=== PATIENT | male | born 1945 | race Caucasian/White ===

== ENCOUNTER 2019-01-31 01:53 | Inpatient (IN) | payer MEDICARE, BC ==
[~2019-01-31] VITALS: Ht 182.9 cm; Wt 108.5 kg
[~2019-01-31 01:53] MED LIST: ASPI325 PO; Amiodarone HCl400 MG PO; CLOP75 PO; EZET10-80 PO; K-Dur 20 meq T20 MEQ PO; Lasix20 MG PO; Lopressor 50 mg50 MG PO; METO100ER PO; METO50 PO; METO50ER PO; NITR.4SL SL; RAMI5 PO; RANO500T PO
[2019-01-31 02:17] LABS: Source, Urine Clean Catch
[2019-01-31] MEDS ORDERED: POTA10T PO (02:20)
[2019-01-31] MEDS ORDERED: FURO20 PO (02:20)
[2019-01-31] MEDS ORDERED: METOPROLOL PO ×2 (02:20)
[2019-01-31] MEDS ORDERED: RAMI5 PO (02:20)
[2019-01-31] MEDS ORDERED: ELIQUIS2.5 MG PO (02:21)
[2019-01-31] MEDS ORDERED: ASPI81CH PO (02:21)
[2019-01-31 02:26] LABS: Bilirubin, Urine Neg (Neg); Blood, Urine Neg (Neg); Glucose Qualitative, Urine Neg (Neg); Ketones, Urine Neg (Neg); Leukocyte Esterase, Urine Neg (Neg); Nitrite, Urine Neg (Neg); Protein, Urine 2+ (Neg); Specific Gravity, Urine 1.025 (1.003-1.022); Urobilinogen, Urine NORM (Normal)
[2019-01-31 02:29] LABS: BASOPHILS ABSOLUTE AUTO 0.05 K/mm3 (0.00-0.23); BASOPHILS PERCENT AUTO 0 % (0-2); EOSINOPHILS ABSOLUTE AUTO 0.14 K/mm3 (0.00-0.68); EOSINOPHILS PERCENT AUTO 1 % (0-6); Hematocrit 47.8 % (37.0-53.0); Hemoglobin 15.5 g/dL (13.5-17.5); IMMATURE GRAN ABSOLUTE AUTO 0.05 K/mm3 (0.00-0.10); IMMATURE GRAN PERCENT AUTO 0 % (0-1); LYMPHOCYTES ABSOLUTE AUTO 2.89 K/mm3 (0.84-5.20); LYMPHOCYTES PERCENT AUTO 19 % (21-46); MONOCYTES ABSOLUTE AUTO 1.04 K/mm3 (0.16-1.47); MONOCYTES PERCENT AUTO 7 % (4-13); Mean Corpuscular HGB Conc 32.4 g/dL (31.5-36.5); Mean Corpuscular Volume 93 fL (80-100); Mean Platelet Volume 10.8 fL (9.1-12.4); NEUTROPHILS ABSOLUTE AUTO 11.39 K/mm3 (1.96-9.15); NEUTROPHILS PERCENT AUTO 73 % (41-73); Platelet Count 276 K/mm3 (150-400); RDW Coefficient Variation 13.2 % (11.7-14.2); RDW Standard Deviation 45.4 fL (35.1-46.3); Red Blood Cell Count 5.17 M/mm3 (4.30-5.90); White Blood Cell Count 15.56 K/mm3 (4.00-11.30)
[2019-01-31 02:29] LABS: Appearance, Urine Clear (Clear); Color, Urine Yellow (P-Yellow)
[2019-01-31 02:32] LABS: Amorphous Light (0-Heavy); Bacteria Rare /hpf; Mucus Light (0-Heavy); Red Blood Cells, Urine Not Seen /hpf (0-2); Squamous Epithelial Cells Few /hpf (Few); White Blood Cells, Urine Rare /hpf (0-5)
[2019-01-31 02:50] LABS: Alanine Aminotransfer (ALT/SGP 28 U/L (12-78); Albumin/Globulin Ratio 0.9 (0.8-1.8); Alk Phos 80 U/L (50-136); Anion Gap 8 mmol/L (6-16); Aspartate Aminotrans (AST/SGOT 18 U/L (12-37); Bilirubin, Total 0.4 mg/dL (0.1-1.0); Blood Urea Nitrogen 27 mg/dL (8-24); Bun/Creatinine Ratio 22.5 (12.0-20.0); CO2, Blood 27 mmol/L (21-32); Calcium, Blood 9.1 mg/dL (8.5-10.1); Chloride, Blood 104 mmol/L (98-108); Globulin, Blood 4.3 g/dL (2.2-4.0); Glomerular Filtration Rate >60 (60-); Glucose, Blood 187 mg/dL (70-99); Potassium, Blood 3.6 mmol/L (3.5-5.5); Sodium, Blood 139 mmol/L (136-145); Total Protein, Blood 8.3 g/dL (6.4-8.2); Troponin I 0.281 ng/mL (0.000-0.040)
[2019-01-31] MEDS ORDERED: NITR.4SL SL (04:25)
--- NOTE | 2019-01-31 05:07 | NUR ---
ASSUMED CARE OF PATIENT AT APPROXIMATELY 0420 FROM ED [facility] PATIENT ARRIVED TO UNIT VIA STRETCHER; TRANSFER WITH VERBAL CUES FROM ED TO PCU STRETCHER. ADMISSION COMPLETE. PATIENT ALERT AND ORIENTED X4. PATIENT DENIES CP/PRESSURE, PAIN ELSEWHERE, DIZZINESS, NAUSEA OR LIGHTHEADEDNESS. AFLUTTER ON TELE WITH A RATE IN 80'S; OXYGEN SATURATION ABOVE 90% ON ROOM AIR. PATIENT REPORTS FEELING BETTER. DR. SALINAS BEDSIDE AT APPROXIMATELY 0450; CARDIO TO BE CONSULTED AND PROB STRESS TEST. HEPARIN GTT. PATIENT CURRENTLY RESTING IN BED; CALL LIGHT IN REACH; BED IN LOWEST POSISTION; WILL CONTINUE TO MONITOR AND ASSESS UNTIL END OF SHIFT.
--- NOTE | 2019-01-31 06:09 | NUR ---
PATIENT'S STOPPED IN. PATIENT REPORTED TO DR. SALINAS THAT HE WOULD LIKE TO BE DNR. NO OTHER ACUTE CHANGES TO REPORT. PATIENT CURRENTLY RESTING IN BED; CALL LIGHT IN REACH; BED IN LOWEST POSISTION; WILL CONTINUE TO MONITOR AND ASSESS UNTIL END OF SHIFT.
[2019-01-31 06:23] LABS: Troponin I 0.295 ng/mL (0.000-0.040)
--- NOTE | 2019-01-31 08:00 | NUR ---
pt laying in bed awake a/ox3, pleasant and cooperative with care, follows commands well, denies pain, states he had some tingling going down his ext, lugns are dim t/o, resp even and unlabord, no cough noted, hrr, tele in place running aflutter per monitor, see strip, no edema noted, ppp+1, cap refill <3sec, vs stable, afebrile, iv site is clear and patent, btx4, abd round soft nontender, voids without diff, skin c/w/d, maew, bebeto, call light in reach, will have an echo this am. in fusing hep gtt at this time.
--- NOTE | 2019-01-31 10:43 | NUR ---
ECHOCARDIOGRAM COMPLETED
--- NOTE | 2019-01-31 12:02 | NUR ---
PT LEFT FOR [facility].
--- NOTE | 2019-01-31 13:30 | NUR ---
pt returned to room after angio, was reported that his grafts were balooned, tr band to left wrist, site is clear, no sign of bleeding but a small bit of bruising noted. pt awake and doing ok. vs stable. he reports it was easier than his was anticipating. will continue to monitor. call light in reach.
[2019-01-31 15:22] LABS: Troponin I 0.179 ng/mL (0.000-0.040)
--- NOTE | 2019-01-31 22:06 | NUR ---
ASSUMED CARE OF PATIENT AT APPROXIMATELY 1905 FROM GURU Lozano RN. PATIENT ALERT AND ORIENTED X4. PATIENT DENIES CP/PRESSURE, PAIN ELSEWHERE, DIZZINESS, NAUSEA OR LIGHTHEADEDNESS. PATIENT HAD ANGIO TODAY THROUGH LEFT RADIAL; BALLOON ANGIO; AFLUTTER W/ BBB ON TELE WITH A RATE IN 60'S; OXYGEN SATURATION ABOVE 90% ON ROOM AIR. PATIENT REPORTS HE IS A LIGHT SLEEPER AND REQUESTED SLEEP AID; REPORTS HE TAKES TYLENOL PM WHEN NEEDED AT HOME; CALLED ELISHA PARKER; ORDERS RECIEVED FOR ONE TIME DOSE OF MELATONIN. TR BAND WAS DEFLATED BY SHIFT CHANGE; TEGADERM DRESSING PLACED SHORTLY AFTER 1999; BRUISING NOTED; SMALL AMOUNT OF DRIED BLOOD CLEANED OFF BEFORE DRESSING PLACED. PATIENT CURRENTLY RESTING IN BED; CALL LIGHT IN REACH; BED IN LOWEST POSISTION; WILL CONTINUE TO MONITOR AND ASSESS UNTIL END OF SHIFT.
[2019-02-01 04:15] LABS: Hematocrit 43.1 % (37.0-53.0); Mean Corpuscular HGB 30.3 pg (26.0-34.0); Mean Corpuscular HGB Conc 32.5 g/dL (31.5-36.5); Mean Corpuscular Volume 93 fL (80-100); Mean Platelet Volume 10.6 fL (9.1-12.4); Platelet Count 238 K/mm3 (150-400); RDW Coefficient Variation 13.6 % (11.7-14.2); RDW Standard Deviation 46.5 fL (35.1-46.3); Red Blood Cell Count 4.62 M/mm3 (4.30-5.90); White Blood Cell Count 10.74 K/mm3 (4.00-11.30)
[2019-02-01 04:34] LABS: Alanine Aminotransfer (ALT/SGP 23 U/L (12-78); Albumin, Blood 3.2 g/dL (3.4-5.0); Albumin/Globulin Ratio 0.9 (0.8-1.8); Alk Phos 71 U/L (50-136); Anion Gap 3 mmol/L (6-16); Aspartate Aminotrans (AST/SGOT 17 U/L (12-37); Bilirubin, Total 0.7 mg/dL (0.1-1.0); Blood Urea Nitrogen 23 mg/dL (8-24); Bun/Creatinine Ratio 21.9 (12.0-20.0); CO2, Blood 29 mmol/L (21-32); Chloride, Blood 107 mmol/L (98-108); Creatinine, Blood 1.05 mg/dL (0.60-1.20); Globulin, Blood 3.7 g/dL (2.2-4.0); Glomerular Filtration Rate >60 (60-); Glucose, Blood 114 mg/dL (70-99); Potassium, Blood 4.5 mmol/L (3.5-5.5); Sodium, Blood 139 mmol/L (136-145); Total Protein, Blood 6.9 g/dL (6.4-8.2)
--- NOTE | 2019-02-01 06:07 | NUR ---
PATIENT SLEPT ABOUT EIGHT HOURS LAST NIGHT. VSS. NO ACUTE CHANGES TO REPORT. LEFT RADIAL SITE UNCHANGED. WILL CONTINUE TO MONITOR AND ASSESS UNTIL END OF SHIFT.
--- NOTE | 2019-02-01 08:00 | NUR ---
pt resting in bed watching tv, states he had a pretty good night, no complaints states the tingling is gone that brought him in. feels ready to go home today, lungs are clear in [place], dim in bases, resp even and unlabored, no cough noted, hrr, tele in place running sr per monitor, see strip, no edema noted, ppp+2, cap refill <3sec, vs stable, afebrile, iv site is power glide to [facility] that is accessed, continues to infuse iv protonix, btx4, abd flat soft nontender voids without diff, skin c/w/d, maew, bebeto, call light in reach.
[2019-02-01] MEDS ORDERED: ATOR40TA PO (10:59)
[2019-02-01] MEDS ORDERED: CLOP75 PO (11:01)
[2019-02-01] MEDS ORDERED: TORSE20 PO (11:03)
[2019-02-01] MEDS ORDERED: METO50ER PO (11:04)
--- NOTE | 2019-02-01 12:18 | NUR ---
pt has been discharged to home, he states he feels good and is ready, will be here around 1 to pick him up. call light in reach.
== END 2019-02-01 14:07 | disposition home or self-care (01) | DRG 251 ==
LOC: ER 01:53 → PCU 01:54 → ER 03:50 → PCU 03:50
PROVIDERS: Emergency Medicine; ADMIT Internal Medicine
PROC: 02713ZZ Dilation of Coronary Artery, Two Arteries, Percutaneous Approach (ICD-10-PCS; principal; 2019-01-31)
PROC: B2111ZZ Fluoroscopy of Multiple Coronary Arteries using Low Osmolar Contrast (ICD-10-PCS; 2019-01-31)
PROC: B2121ZZ Fluoroscopy of Single Coronary Artery Bypass Graft using Low Osmolar Contrast (ICD-10-PCS; 2019-01-31)
DX: I21.4 Non-ST elevation (NSTEMI) myocardial infarction (principal); I48.92 Unspecified atrial flutter; I25.10 Atherosclerotic heart disease of native coronary artery without angina pectoris; Z95.1 Presence of aortocoronary bypass graft; I45.10 Unspecified right bundle-branch block; I10 Essential (primary) hypertension; E66.9 Obesity, unspecified; Z68.31 Body mass index [BMI] 31.0-31.9, adult; I48.0 Paroxysmal atrial fibrillation
CPT/HCPCS: 36415; 71045; 76937; 80053; 81001; 82550; 83880; 84484; 85025; 85027; 85347; 85730; 92920; 92921; 93005; 93010; 93306; 93455; 96374; 99152; 99153; 99284-25; C1725; C1769; C1887; C1894; G0378; J1644; J1940; J2250; J3010; J7030; J7040; Q9967

== ENCOUNTER 2020-09-18 05:46 | Day surgery (SDC) | payer MEDICARE, BC ==
[~2020-09-18] VITALS: Ht 182.9 cm; Wt 118.0 kg
[~2020-09-18 05:46] MED LIST changes: +ASPI81CH PO; +ATOR40TA PO; +ELIQUIS2.5 MG PO; +FURO20 PO; +METO25ER PO; +METOPROLOL PO; +POTA10T PO; +TORSE20 PO
[2020-09-18] MEDS ORDERED: FURO20 PO (06:34)
[2020-09-18] MEDS ORDERED: CEPH500 PO (09:44)
--- NOTE | 2020-09-18 16:04 | NUR ---
DISCHARGE PT REMAINED A&OX3 DURING RECOVERY. PAIN HAD DECREASED TO A 2 DURING RECOVERY AND STAYED THERE THROUGHOUT. IV DC'S WITH CANUYLA IN TACT. LEFT UPPER CHEST SITE REMAINS CDI-NO HEMATOMA NOTED.-PRESSURE DRESSING REMOVED-TELFA PAD AND TEGADERM REMAIN IN PLACE. PT UP TO RESTROOM WITH STEADY GAIT AND ABLE TO DRESS SELF. DISCHARGE PAPERWORK GONE OVER WITH PT. PT VERBALLY STATED THE UNDERSTANDING OF THE DISCHARGE EDUCATION AND DENIED ANY QUESTIONS AT THIS TIME. PT WHEELD OUT BY THIS NURSE.
== END 2020-09-18 16:39 | disposition home or self-care (01) ==
LOC: MHTC 05:46
DX: I11.0 Hypertensive heart disease with heart failure (principal); I50.20 Unspecified systolic (congestive) heart failure; I42.0 Dilated cardiomyopathy; I25.5 Ischemic cardiomyopathy; I45.2 Bifascicular block; I08.1 Rheumatic disorders of both mitral and tricuspid valves; I27.20 Pulmonary hypertension, unspecified; I48.91 Unspecified atrial fibrillation; I48.92 Unspecified atrial flutter; I25.10 Atherosclerotic heart disease of native coronary artery without angina pectoris; I25.2 Old myocardial infarction; Z98.61 Coronary angioplasty status; Z95.1 Presence of aortocoronary bypass graft; Z82.49 Family history of ischemic heart disease and other diseases of the circulatory system; E66.01 Morbid (severe) obesity due to excess calories; Z68.35 Body mass index [BMI] 35.0-35.9, adult; Z79.01 Long term (current) use of anticoagulants
CPT/HCPCS: 33249; 71046; 76937; 99152; 99153; A9270; C1721; C1894; C1895; C1898; J0690; J1644; J2250; J3010; J7040

== ENCOUNTER → 2022-07-27 | Outpatient (CLI) | payer MEDICARE, BC ==
[~2022-07-27] MED LIST changes: +ALBU90OI INH; +CEPH500 PO; +Tessalon Perle100 MG PO
== END | disposition home or self-care (01) ==
LOC: PLD 08:16 → LAB SHORT 08:16
DX: C44.01 Basal cell carcinoma of skin of lip (principal)
CPT/HCPCS: 88305

== ENCOUNTER 2022-09-18 19:19 | Emergency (ER) | payer MEDICARE, BC ==
[~2022-09-18] VITALS: Ht 182.9 cm; Wt 101.2 kg
[2022-09-18 19:50] LABS: BASOPHILS ABSOLUTE AUTO 0.04 K/mm3 (0.00-0.23); BASOPHILS PERCENT AUTO 1 % (0-2); EOSINOPHILS ABSOLUTE AUTO 0.44 K/mm3 (0.00-0.68); EOSINOPHILS PERCENT AUTO 6 % (0-6); Hematocrit 34.7 % (37.0-53.0); Hemoglobin 11.4 g/dL (13.5-17.5); IMMATURE GRAN ABSOLUTE AUTO 0.01 K/mm3 (0.00-0.10); IMMATURE GRAN PERCENT AUTO 0 % (0-1); LYMPHOCYTES ABSOLUTE AUTO 1.69 K/mm3 (0.84-5.20); LYMPHOCYTES PERCENT AUTO 24 % (21-46); MONOCYTES ABSOLUTE AUTO 1.22 K/mm3 (0.16-1.47); MONOCYTES PERCENT AUTO 17 % (4-13); Mean Corpuscular HGB 30.5 pg (26.0-34.0); Mean Corpuscular HGB Conc 32.9 g/dL (31.5-36.5); Mean Corpuscular Volume 93 fL (80-100); Mean Platelet Volume 11.3 fL (9.1-12.4); NEUTROPHILS ABSOLUTE AUTO 3.67 K/mm3 (1.96-9.15); NEUTROPHILS PERCENT AUTO 52 % (41-73); Platelet Count 196 K/mm3 (150-400); RDW Coefficient Variation 15.2 % (11.7-14.2); RDW Standard Deviation 51.9 fL (35.1-46.3); Red Blood Cell Count 3.74 M/mm3 (4.30-5.90); White Blood Cell Count 7.07 K/mm3 (4.00-11.30)
[2022-09-18 20:08] LABS: Albumin/Globulin Ratio 0.8 (0.8-1.8); Bilirubin, Total 1.6 mg/dL (0.1-1.0); Bun/Creatinine Ratio 17.2 (12.0-20.0); Calcium, Blood 9.3 mg/dL (8.5-10.1); Creatinine, Blood 1.45 mg/dL (0.60-1.20); Globulin, Blood 3.7 g/dL (2.2-4.0); Potassium, Blood 4.1 mmol/L (3.5-5.5); Total Protein, Blood 6.7 g/dL (6.4-8.2)
[2022-09-18 21:18] LABS: Percent Saturation 17.6 % (20.0-50.0)
[2022-09-18 21:30] VITALS: BP 115/77
== END 2022-09-18 22:10 | disposition home or self-care (01) ==
LOC: ER 19:19
PROVIDERS: Student in an Organized Health Care Education/Training Program
DX: R53.1 Weakness (principal); D50.9 Iron deficiency anemia, unspecified; R63.4 Abnormal weight loss; Z68.30 Body mass index [BMI] 30.0-30.9, adult; I11.0 Hypertensive heart disease with heart failure; I50.9 Heart failure, unspecified; I25.10 Atherosclerotic heart disease of native coronary artery without angina pectoris; Z79.01 Long term (current) use of anticoagulants; Z79.899 Other long term (current) drug therapy
CPT/HCPCS: 70450; 80053; 82728; 83540; 83550; 85025; 93005; 93010; 99285-25

== ENCOUNTER 2022-10-03 09:34 | Emergency (ER) | payer MEDICARE, BC ==
[~2022-10-03] VITALS: Ht 182.9 cm; Wt 99.8 kg
[2022-10-03] MEDS ORDERED: LOSA50 PO (10:03)
[2022-10-03] MEDS ORDERED: PLAVIX75 MG PO (10:04)
[2022-10-03 10:06] LABS: BASOPHILS ABSOLUTE AUTO 0.05 K/mm3 (0.00-0.23); BASOPHILS PERCENT AUTO 1 % (0-2); EOSINOPHILS PERCENT AUTO 2 % (0-6); Hematocrit 21.2 % (37.0-53.0); Hemoglobin 6.8 g/dL (13.5-17.5); IMMATURE GRAN ABSOLUTE AUTO 0.02 K/mm3 (0.00-0.10); IMMATURE GRAN PERCENT AUTO 0 % (0-1); LYMPHOCYTES ABSOLUTE AUTO 1.27 K/mm3 (0.84-5.20); LYMPHOCYTES PERCENT AUTO 19 % (21-46); MONOCYTES ABSOLUTE AUTO 0.79 K/mm3 (0.16-1.47); MONOCYTES PERCENT AUTO 12 % (4-13); Mean Corpuscular HGB 30.8 pg (26.0-34.0); Mean Corpuscular HGB Conc 32.1 g/dL (31.5-36.5); Mean Corpuscular Volume 96 fL (80-100); NEUTROPHILS ABSOLUTE AUTO 4.53 K/mm3 (1.96-9.15); NEUTROPHILS PERCENT AUTO 67 % (41-73); Platelet Count 264 K/mm3 (150-400); RDW Coefficient Variation 14.9 % (11.7-14.2); RDW Standard Deviation 52.6 fL (35.1-46.3); Red Blood Cell Count 2.21 M/mm3 (4.30-5.90); White Blood Cell Count 6.76 K/mm3 (4.00-11.30)
[2022-10-03 10:23] LABS: Albumin, Blood 2.9 g/dL (3.4-5.0); Albumin/Globulin Ratio 0.9 (0.8-1.8); Bilirubin, Total 1.3 mg/dL (0.1-1.0); Bun/Creatinine Ratio 31.9 (12.0-20.0); Calcium, Blood 8.7 mg/dL (8.5-10.1); Creatinine, Blood 1.63 mg/dL (0.60-1.20); Globulin, Blood 3.4 g/dL (2.2-4.0); Potassium, Blood 4.8 mmol/L (3.5-5.5); Total Protein, Blood 6.3 g/dL (6.4-8.2)
[2022-10-03 10:51] LABS: Magnesium, Blood 2.2 mg/dL (1.6-2.4)
[2022-10-03 10:53] LABS: Thyroid Stimulating Hormone 10.1 uIU/mL (0.360-4.800)
[2022-10-03 11:52] LABS: Free Thyroxine 0.87 ng/dL (0.70-1.60); Triiodothyronine, Free 2.15 pg/mL (2.18-3.98)
[2022-10-03 15:33] LABS: Hematocrit 25.4 % (37.0-53.0); Hemoglobin 8.4 g/dL (13.5-17.5); Mean Corpuscular HGB 30.9 pg (26.0-34.0); Mean Corpuscular HGB Conc 33.1 g/dL (31.5-36.5); Mean Corpuscular Volume 93 fL (80-100); Mean Platelet Volume 11.2 fL (9.1-12.4); Platelet Count 251 K/mm3 (150-400); RDW Coefficient Variation 15.1 % (11.7-14.2); RDW Standard Deviation 51.3 fL (35.1-46.3); Red Blood Cell Count 2.72 M/mm3 (4.30-5.90)
[2022-10-03 19:11] VITALS: BP 109/73
== END 2022-10-03 19:50 | disposition short-term general hospital (02) ==
LOC: ER 09:34
PROVIDERS: Emergency Medicine; Student in an Organized Health Care Education/Training Program
DX: R57.1 Hypovolemic shock (principal); D62 Acute posthemorrhagic anemia; K92.1 Melena; T45.515A Adverse effect of anticoagulants, initial encounter; R94.31 Abnormal electrocardiogram [ECG] [EKG]; R77.8 Other specified abnormalities of plasma proteins; Z79.899 Other long term (current) drug therapy; I25.10 Atherosclerotic heart disease of native coronary artery without angina pectoris; I11.0 Hypertensive heart disease with heart failure; I50.9 Heart failure, unspecified; I25.2 Old myocardial infarction
CPT/HCPCS: 36430; 80053; 82947; 83735; 84439; 84443; 84481; 84484; 85025; 85027; 86850; 86900; 86901; 86923; 93005; 93010; 96374; 99285-25; J7030; J7168; P9016

== ENCOUNTER 2022-12-05 13:33 | Inpatient (IN) | payer MEDICARE, BC ==
[~2022-12-05] VITALS: Ht 182.9 cm; Wt 109.7 kg
[~2022-12-05 13:33] MED LIST changes: +LOSA50 PO; +PLAVIX75 MG PO
[2022-12-05 14:10] LABS: BASOPHILS ABSOLUTE AUTO 0.04 K/mm3 (0.00-0.23); BASOPHILS PERCENT AUTO 1 % (0-2); EOSINOPHILS PERCENT AUTO 3 % (0-6); Hematocrit 31.5 % (37.0-53.0); Hemoglobin 9.8 g/dL (13.5-17.5); IMMATURE GRAN ABSOLUTE AUTO 0.02 K/mm3 (0.00-0.10); IMMATURE GRAN PERCENT AUTO 0 % (0-1); LYMPHOCYTES ABSOLUTE AUTO 1.14 K/mm3 (0.84-5.20); LYMPHOCYTES PERCENT AUTO 16 % (21-46); MONOCYTES ABSOLUTE AUTO 1.31 K/mm3 (0.16-1.47); MONOCYTES PERCENT AUTO 19 % (4-13); Mean Corpuscular HGB 25.3 pg (26.0-34.0); Mean Corpuscular HGB Conc 31.1 g/dL (31.5-36.5); Mean Corpuscular Volume 81 fL (80-100); NEUTROPHILS ABSOLUTE AUTO 4.31 K/mm3 (1.96-9.15); NEUTROPHILS PERCENT AUTO 61 % (41-73); Platelet Count 293 K/mm3 (150-400); RDW Coefficient Variation 17.1 % (11.7-14.2); RDW Standard Deviation 50.2 fL (35.1-46.3); Red Blood Cell Count 3.88 M/mm3 (4.30-5.90); White Blood Cell Count 7.02 K/mm3 (4.00-11.30)
[2022-12-05 14:41] LABS: Albumin, Blood 2.8 g/dL (3.4-5.0); Albumin/Globulin Ratio 0.6 (0.8-1.8); Bilirubin, Total 1.6 mg/dL (0.1-1.0); Bun/Creatinine Ratio 18.6 (12.0-20.0); Calcium, Blood 9.2 mg/dL (8.5-10.1); Creatinine, Blood 2.79 mg/dL (0.60-1.20); Globulin, Blood 4.8 g/dL (2.2-4.0); Potassium, Blood 4.3 mmol/L (3.5-5.5); Total Protein, Blood 7.6 g/dL (6.4-8.2)
[2022-12-05] MEDS ORDERED: ASPI81CH PO (16:50)
[2022-12-05] MEDS ORDERED: METO25ER PO (16:51)
[2022-12-05] MEDS ORDERED: PANT40 PO (16:52)
[2022-12-05] MEDS ORDERED: KLOR-CON 1010 ME1 PO (16:53)
[2022-12-05] MEDS ORDERED: TORS10 PO (16:54)
[2022-12-05 19:04] VITALS: BP 82/69
--- NOTE | 2022-12-06 04:01 | NUR ---
SHIFT SUMMARY/ADMIT NOTE PATIENT ARRIVED FROM ED RIGHT AT SHIFT CHANGE. A/Ox4, PLEASANT, COOPERATIVE. C/O FATIGUE, FEELING WEAK AT TIMES, SOB WITH EXERTION. ABLE TO AMBULATE SHORT DISTANCES, SBA. INDEPENDANT WITH BED MOBILITY. PITTING EDEMA TO BLE AND SCROTAL EDEMA. C/O PAIN TO RIGHT SHOULDER, RECEIVED PRN TYLENOL AND TOLERATED WELL WITHOUT FURTHER C/O PAIN. COMPLIANT WITH 1L FLUID RESTRICTION. 24HR URINE COLLECTION IN PROGRESS. VOIDING IN URINAL, DARK MARIANA, CONSENTRATED URINE. NOTED 1 SMALL FLUID FILLED BLISTER TO LLE, PATIENT STATES THERE WAS MANY MORE THAT HAVE BEEN DRAINED. NO OTHER SIGNIFICANT SKIN ISSUES. EXTENSIVE CARDIAC Hx, SEE H&P. NO ACUTE CHANGES OVERNIGHT. PATIENT EDUCATED ON FIRE SAFETY AND RISK OF INJURY R/T OXYGEN USE, VERBALIZED UNDERSTANDING, DENIES SMOKING NOR HAVING ACCESS TO ANY SOURCES OF IGNITION. BED IN LOW POSITION, CALL LIGHT WITHIN REACH.
[2022-12-06 04:10] VITALS: BP 104/75
[2022-12-06 04:55] LABS: Hematocrit 31.2 % (37.0-53.0); Hemoglobin 9.6 g/dL (13.5-17.5)
[2022-12-06 05:14] LABS: Albumin, Blood 2.9 g/dL (3.4-5.0); Anion Gap 13 mmol/L (6-16); Blood Urea Nitrogen 56 mg/dL (8-24); Bun/Creatinine Ratio 19.1 (12.0-20.0); CO2, Blood 21 mmol/L (21-32); CPK Creatine Kinase 199 U/L (39-308); Calcium, Blood 8.8 mg/dL (8.5-10.1); Chloride, Blood 106 mmol/L (98-108); Creatinine, Blood 2.93 mg/dL (0.60-1.20); Glomerular Filtration Rate 21 (60-); Glucose, Blood 113 mg/dL (70-99); Magnesium, Blood 2.2 mg/dL (1.6-2.4); Phosphorus, Blood 4.3 mg/dL (2.5-4.9); Potassium, Blood 4.2 mmol/L (3.5-5.5); Sodium, Blood 140 mmol/L (136-145); Uric Acid, Blood 10.7 mg/dL (3.5-7.2)
[2022-12-06 07:26] VITALS: BP 104/81
[2022-12-06 13:20] VITALS: BP 96/80
[2022-12-06 17:01] VITALS: BP 90/67
--- NOTE | 2022-12-06 19:14 | NUR ---
SHIFT SUMMARY: PT A&O X4. PT PLEASANT AND COOPERATIVE WITH ALL CARE. IGNITION SOURCES DISCUSSED WITH PT BY THIS RN AND HAT MODEL. PT VERBALIZED UNDERSTANDING. PT RECEVIED DIURETICS PER EMAR. PT HAS 3+ BLE AND SCROTAL EDEMA. PT ON 1000ML FLUID RESTRICTION TOLERATING WELL. PT WORKED WITH PT/OT TODAY AND ABLE TO MOVE INDEPENDENTLY WITH WALKER. PT OCCASIONALLY WILL GET TIRED WHEN AMBULATING BUT IS AWARE TO ASK FOR ASSISTANCE WHEN FEELING WEAK. IV IN LAC LEAKING AND POSITIONAL. NIGHT RN AWARE. PT RECEVIED IV ABX FOR PNEUMONIA WELL ALBUMIN ALSO TOLERATING WELL. PO ABX GIVEN PER EMAR. PT HAD SOFT BP'S THIS SHIFT. SCHEDULED MIDODRINE GIVEN. CALL LIGHT IN REACH. BED IN LOWEST POSITION. REPORT GIVEN TO ONCOMING RN.
[2022-12-06 19:23] VITALS: BP 100/76
--- NOTE | 2022-12-07 03:49 | NUR ---
SHIFT SUMMARY. SHIFT HAS BEEN UNREMARKABLE. PT IS AOX4, PLEASANT, COOPERATIVE WITH CARE. ADHERING TO 1000ML FLUID RESTRICTION. NO COMPLAINTS OF PAIN. HAS SLEPT THROUGH MOST OF NIGHT AFTER 2100 ASSESSMENT. HELD 2100 HEPARIN DUE TO RISK ASSOCIATED GIVEN RECENT PROLONGED HOSPITALIZATION FOR GI BLEED. NO MANIFESTATIONS OF GI BLEED THUS FAR. WILL CONTINUE TO MONITOR. CALLS APPROPRIATELY. BED LOCKED IN LOWEST POSITION. CALL LIGHT LEFT WITHIN REACH.
[2022-12-07 04:20] VITALS: BP 98/84
[2022-12-07 04:56] LABS: Hematocrit 30.1 % (37.0-53.0); Hemoglobin 9.4 g/dL (13.5-17.5)
[2022-12-07 05:46] LABS: Anion Gap 13 mmol/L (6-16); Blood Urea Nitrogen 58 mg/dL (8-24); Bun/Creatinine Ratio 19.3 (12.0-20.0); CO2, Blood 22 mmol/L (21-32); Calcium, Blood 8.9 mg/dL (8.5-10.1); Chloride, Blood 103 mmol/L (98-108); Glomerular Filtration Rate 21 (60-); Glucose, Blood 105 mg/dL (70-99); Phosphorus, Blood 4.3 mg/dL (2.5-4.9); Potassium, Blood 3.7 mmol/L (3.5-5.5); Sodium, Blood 138 mmol/L (136-145)
[2022-12-07 07:23] VITALS: BP 111/77
[2022-12-07 08:50] LABS: Protein, Urine Quantitative 10.4 mg/dL (0.0-11.9)
[2022-12-07 14:31] VITALS: BP 95/70
[2022-12-07 16:26] VITALS: BP 93/64
--- NOTE | 2022-12-07 17:28 | NUR ---
SHIFT SUMMARY- PT IS A/O, PLESANT AND COOPERATIVE. HE IS ADHEARING TO HIS FLUID RESTRICTION AND VOIDING FREQUENTLY. HIS BLOOD PRESSURES HAVE BEEN SOFT THIS SHIFT AND HE HAS RECIEVED HIS MIDODRINE. HE HAS BEEN AMBULATING TO THE RESTROOM. UP TO THE CHAIR FOR MEALS. WORKED WITH PT AND OT THIS SHIFT AND TOLORATED WELL. HIS BED IS IN THE LOW POSITON AND CALL LIGHT IS WITHIN REACH. HE WAS EDUCATED ABOUT FIRE SAFTY.
[2022-12-07 19:07] VITALS: BP 98/64
[2022-12-08 04:48] VITALS: BP 99/75
[2022-12-08 05:14] LABS: Hematocrit 27.2 % (37.0-53.0); Hemoglobin 8.6 g/dL (13.5-17.5)
--- NOTE | 2022-12-08 05:21 | NUR ---
SHIFT SUMMARY. SHIFT HAS BEEN UNREMARKABLE. PT COMPLAINED OF CRAMPS EARLY THIS MORNING. CALLED HOSPITALIST AND ACQUIRED ORDER AND ADMINISTERED FLEXERIL WHICH ALLEVIATED SYMPTOMS. NO COMPLAINTS OF PAIN SINCE OTHER THAN GENERAL SORENESS. AOX4, PLEASANT, COOPERATIVE WITH CARE. CALLS APPROPRIATELY. BED LOCKED IN LOWEST POSITION. CALL LIGHT LEFT WITHIN REACH.
[2022-12-08 06:03] LABS: Albumin, Blood 2.9 g/dL (3.4-5.0); Anion Gap 10 mmol/L (6-16); Blood Urea Nitrogen 62 mg/dL (8-24); Bun/Creatinine Ratio 17.8 (12.0-20.0); CO2, Blood 25 mmol/L (21-32); Calcium, Blood 8.7 mg/dL (8.5-10.1); Chloride, Blood 102 mmol/L (98-108); Creatinine, Blood 3.49 mg/dL (0.60-1.20); Glomerular Filtration Rate 17 (60-); Glucose, Blood 114 mg/dL (70-99); Magnesium, Blood 2.1 mg/dL (1.6-2.4); Phosphorus, Blood 4.3 mg/dL (2.5-4.9); Potassium, Blood 3.2 mmol/L (3.5-5.5); Sodium, Blood 137 mmol/L (136-145)
[2022-12-08 07:54] VITALS: BP 93/58
[2022-12-08 07:55] VITALS: BP 102/74
[2022-12-08 10:10] LABS: IMMUNOGLOBULIN A, QN, SERUM 1003 mg/dL (61-437); IMMUNOGLOBULIN G, QN, SERUM 1939 mg/dL (603-1613); IMMUNOGLOBULIN M, QN, SERUM 92 mg/dL (15-143)
[2022-12-08 14:56] VITALS: BP 94/70
--- NOTE | 2022-12-08 16:40 | NUR ---
SHIFT SUMMARY PT AOX4, SBA/INDEPENDENT IN THE ROOM USING A WALKER. PT HAS HAD AT THE BS THIS SHIFT. PT HAS NOT C/O P/N/V/D/CP/SOB THIS SHIFT. HE IS EAGER TO GET HOME. PT TAKES HIS MEDICATIONS WHOLE. HE IS ON A 1000ML FLUID RESTRICTION. CALL LIGHT WITHIN REACH, BED IN THE LOWEST POSITION. FIRE SAFETY PROTOCOLS AND PROCEDURES REVIEWED WITH PT. PT VERBALIZED UNDERSTANDING. NO IGNITION SOURCE IDENTIFIED. WILL REPORT TO ONCOMING NURSE.
[2022-12-09 04:16] VITALS: BP 92/70
[2022-12-09 04:55] LABS: BASOPHILS ABSOLUTE AUTO 0.03 K/mm3 (0.00-0.23); BASOPHILS PERCENT AUTO 0 % (0-2); EOSINOPHILS ABSOLUTE AUTO 0.64 K/mm3 (0.00-0.68); EOSINOPHILS PERCENT AUTO 9 % (0-6); Hematocrit 27.1 % (37.0-53.0); Hemoglobin 8.8 g/dL (13.5-17.5); IMMATURE GRAN ABSOLUTE AUTO 0.02 K/mm3 (0.00-0.10); IMMATURE GRAN PERCENT AUTO 0 % (0-1); LYMPHOCYTES PERCENT AUTO 16 % (21-46); MONOCYTES ABSOLUTE AUTO 1.34 K/mm3 (0.16-1.47); MONOCYTES PERCENT AUTO 18 % (4-13); Mean Corpuscular HGB 25.1 pg (26.0-34.0); Mean Corpuscular HGB Conc 32.5 g/dL (31.5-36.5); Mean Corpuscular Volume 77 fL (80-100); Mean Platelet Volume 10.7 fL (9.1-12.4); NEUTROPHILS ABSOLUTE AUTO 4.27 K/mm3 (1.96-9.15); NEUTROPHILS PERCENT AUTO 57 % (41-73); Platelet Count 218 K/mm3 (150-400); RDW Coefficient Variation 17.2 % (11.7-14.2); RDW Standard Deviation 47.5 fL (35.1-46.3); Red Blood Cell Count 3.51 M/mm3 (4.30-5.90)
[2022-12-09 05:11] LABS: Albumin, Blood 3.1 g/dL (3.4-5.0); Anion Gap 8 mmol/L (6-16); Blood Urea Nitrogen 63 mg/dL (8-24); Bun/Creatinine Ratio 16.8 (12.0-20.0); CO2, Blood 28 mmol/L (21-32); Calcium, Blood 8.9 mg/dL (8.5-10.1); Chloride, Blood 100 mmol/L (98-108); Creatinine, Blood 3.76 mg/dL (0.60-1.20); Glomerular Filtration Rate 16 (60-); Glucose, Blood 118 mg/dL (70-99); Magnesium, Blood 1.9 mg/dL (1.6-2.4); Phosphorus, Blood 4.1 mg/dL (2.5-4.9); Potassium, Blood 3.3 mmol/L (3.5-5.5); Sodium, Blood 136 mmol/L (136-145)
--- NOTE | 2022-12-09 05:25 | NUR ---
SUMMARY- NO ACUTE EVENTS OVERNIGHT. SBA. AAOX4. PT SLEPT WELL. RN EDUCATED ON FIRE SAFETY EVERY HOUR WITH ROUNDS.
[2022-12-09 07:21] VITALS: BP 98/70
[2022-12-09 13:28] VITALS: BP 92/74
[2022-12-09 14:12] LABS: ANTIMYELOPEROXIDASE (MPO) ABS <0.2 units (0.0-0.9); ANTIPROTEINASE 3 (PR-3) ABS <0.2 units (0.0-0.9); ATYPICAL PANCA <1:20 titer (Neg:<1:20); CYTOPLASMIC (C-ANCA) <1:20 titer (Neg:<1:20); PERINUCLEAR (P-ANCA) <1:20 titer (Neg:<1:20)
[2022-12-09 16:31] VITALS: BP 103/78
--- NOTE | 2022-12-09 17:42 | NUR ---
SHIFT SUMMARY: Pt remains A&O x3 this shift. VSS, denies pain. Resp even nonlabored on RA. OOB with fww. BLE edema remains pitting. Meds given as ordered. Voiding per urinal. Fluid restriction in place. Sitting up eating dinner. No c/o verbalized. Will continue to follow this shift.
[2022-12-09 19:26] VITALS: BP 93/71
[2022-12-10 03:26] VITALS: BP 104/81
[2022-12-10 05:01] LABS: Hematocrit 26.7 % (37.0-53.0); Hemoglobin 8.5 g/dL (13.5-17.5)
--- NOTE | 2022-12-10 05:22 | NUR ---
SHIFT SUMMARY PT A&O x4; VSS, AFEBRILE. PT CALM AND COOPERATIVE WITH CARE PROVIDED. NO C/O PAIN OR DISCOMFORT NOTED. PT COMPLIANT WITH 1000 mL RESTRICTION. ENCOURAGED PT TO CALL FOR ASSISTANCE WITH AMBULATING, WHILE PT WAS RECEIVING IV MEDICATION FOR SAFETY. NO SIGNS OF RESP DISTRESS, BREATHS EVEN AND UNLABORED. PT ABLE TO MAKE NEEDS KNOWN. CALL LIGHT WITHIN REACH, WCTM.
[2022-12-10 05:49] LABS: Albumin, Blood 3.3 g/dL (3.4-5.0); Anion Gap 10 mmol/L (6-16); Blood Urea Nitrogen 68 mg/dL (8-24); Bun/Creatinine Ratio 18.8 (12.0-20.0); CO2, Blood 29 mmol/L (21-32); Calcium, Blood 9.2 mg/dL (8.5-10.1); Chloride, Blood 98 mmol/L (98-108); Creatinine, Blood 3.62 mg/dL (0.60-1.20); Glomerular Filtration Rate 17 (60-); Glucose, Blood 116 mg/dL (70-99); Magnesium, Blood 1.8 mg/dL (1.6-2.4); Phosphorus, Blood 4.3 mg/dL (2.5-4.9); Potassium, Blood 3.4 mmol/L (3.5-5.5); Sodium, Blood 137 mmol/L (136-145)
[2022-12-10 07:21] VITALS: BP 96/76
[2022-12-10 15:04] VITALS: BP 93/76
--- NOTE | 2022-12-10 18:12 | NUR ---
SHIFT SUMMARY: Pt remains A&O this shift. VSS, denies pain. Ambulating independently in room and hallway. Resp even nonlabored on RA. Voiding per urinal. 1000ml fluid restriction in place. Support stockings on today. BLE edema improved, but remains pitting and weeping at times. Ignition safety with Q 1h rounds.
[2022-12-10 19:57] VITALS: BP 79/49
[2022-12-10 20:02] VITALS: BP 101/80
--- NOTE | 2022-12-11 01:08 | NUR ---
END OF SHIFT SUMMARY PT A&O x4 THIS EVENING. VSS, NO C/O PAIN. RESP EVEN AND UNLABORED, NO DIFFICULTIES WITH BREATHING. LUNG SOUNDS DIM AT THE BASES. PT CONTINENT, VOIDING USING THE URINAL. PT COMPLIANT WITH THE 1,000 mL FLUID RESTRICTION. FIRE SAFETY PROTOCOLS AND PROCEDURES REVIEWED WITH PT. NO IGNITION SOURCES IDENTIFIED, PT STATED "I'VE NEVER SMOKED A CIGARETTE." PT ABLE TO MAKE NEEDS KNOWN, CALL LIGHT WITHIN REACH, WCTM.
[2022-12-11 02:43] VITALS: BP 84/58
[2022-12-11 02:45] VITALS: BP 102/77
[2022-12-11 05:09] LABS: Hematocrit 25.7 % (37.0-53.0); Hemoglobin 8.4 g/dL (13.5-17.5)
[2022-12-11 05:34] LABS: Albumin, Blood 3.5 g/dL (3.4-5.0); Anion Gap 10 mmol/L (6-16); Blood Urea Nitrogen 76 mg/dL (8-24); Bun/Creatinine Ratio 20.4 (12.0-20.0); CO2, Blood 29 mmol/L (21-32); Calcium, Blood 9.3 mg/dL (8.5-10.1); Chloride, Blood 98 mmol/L (98-108); Creatinine, Blood 3.72 mg/dL (0.60-1.20); Glomerular Filtration Rate 16 (60-); Glucose, Blood 110 mg/dL (70-99); Magnesium, Blood 1.9 mg/dL (1.6-2.4); Phosphorus, Blood 3.7 mg/dL (2.5-4.9); Potassium, Blood 3.6 mmol/L (3.5-5.5); Sodium, Blood 137 mmol/L (136-145)
[2022-12-11 07:24] VITALS: BP 97/74
[2022-12-11] MEDS ORDERED: BUME2 PO (11:18)
[2022-12-11] MEDS ORDERED: AMOCLA875 PO (11:22)
[2022-12-11] MEDS ORDERED: DARBEPOETIN ALFA SC (11:24)
[2022-12-11] MEDS ORDERED: MIDO5 PO (11:24)
[2022-12-11] MEDS ORDERED: Midodrine HCl5 MG PO (11:26)
[2022-12-11] MEDS ORDERED: SPIR25 PO (11:27)
[2022-12-11] MEDS ORDERED: AZIT250 PO (11:34)
[2022-12-11] MEDS ORDERED: METO5 PO (11:36)
--- NOTE | 2022-12-11 13:21 | NUR ---
SHIFT/DISCHARGE SUMMARY: Pt remains A&O x3 this shift. Denies pain. VSS. Resp even nonlabored on RA. Ambulating independently. BM this am. Voiding without difficulty. BLE edema improved. All discharge instructions reviewed with pt and with return verbal understanding. Pt to lobby via transport chair and BOILER FITTER.
[2022-12-14 14:07] LABS: M-SPIKE, % Not Observed % (Not Observed)
== END 2022-12-11 13:26 | disposition home health service (06) | DRG 193 ==
LOC: ER 13:33 → MEDS 16:46 → ENPENDDIS 12-06 10:01 → MEDS 12-11 13:26
PROVIDERS: Internal Medicine Nephrology; Student in an Organized Health Care Education/Training Program; ADMIT Family Medicine
DX: J18.9 Pneumonia, unspecified organism (principal); I50.23 Acute on chronic systolic (congestive) heart failure; I13.0 Hypertensive heart and chronic kidney disease with heart failure and stage 1 through stage 4 chronic kidney disease, or unspecified chronic kidney disease; N17.9 Acute kidney failure, unspecified; I50.22 Chronic systolic (congestive) heart failure; D63.1 Anemia in chronic kidney disease; N18.2 Chronic kidney disease, stage 2 (mild); I25.10 Atherosclerotic heart disease of native coronary artery without angina pectoris; I95.9 Hypotension, unspecified; E66.3 Overweight; E88.09 Other disorders of plasma-protein metabolism, not elsewhere classified; E87.6 Hypokalemia; R31.29 Other microscopic hematuria; Z86.73 Personal history of transient ischemic attack (TIA), and cerebral infarction without residual deficits; Z87.19 Personal history of other diseases of the digestive system; Z95.1 Presence of aortocoronary bypass graft; Z95.5 Presence of coronary angioplasty implant and graft; Z90.89 Acquired absence of other organs; Z95.0 Presence of cardiac pacemaker; Z79.51 Long term (current) use of inhaled steroids; Z79.01 Long term (current) use of anticoagulants; Z79.02 Long term (current) use of antithrombotics/antiplatelets; Z79.899 Other long term (current) drug therapy
CPT/HCPCS: 36415; 71046; 76770; 80053; 80069; 82550; 83516; 83520; 83735; 83880; 84145; 84156; 84166; 84300; 84484; 84550; 85014; 85018; 85025; 86037; 86038; 86334; 86335; 93005; 93010; 96374; 96375; 97110; 97116; 97162; 97166; 97530; 97535; 99285-25; A9270; J0456; J0696; J0881; J1940; J7050; P9047

== ENCOUNTER → 2022-12-20 | Outpatient (CLI) | payer MEDICARE, BC ==
[~2022-12-20] MED LIST changes: +AMOCLA875 PO; +AZIT250 PO; +BUME2 PO; +DARBEPOETIN ALFA SC; +KLOR-CON 1010 ME1 PO; +METO5 PO; +MIDO5 PO; +Midodrine HCl5 MG PO; +PANT40 PO; +SPIR25 PO; +TORS10 PO
[2022-12-20 17:10] LABS: Creatinine Urine 56.9 mg/dL (27.00-270.00); Protein, Urine Quantitative 17.5 mg/dL (0.0-11.9)
[2022-12-20 17:13] LABS: Microalbumin, Urine Quant. 38.6 mg/L (0.000-20.000)
== END | disposition home or self-care (01) ==
LOC: LAB SHORT 13:00 → LAB 13:00
PROVIDERS: Internal Medicine Nephrology
DX: N18.30 Chronic kidney disease, stage 3 unspecified (principal); D63.1 Anemia in chronic kidney disease; N25.81 Secondary hyperparathyroidism of renal origin; E78.00 Pure hypercholesterolemia, unspecified; E55.9 Vitamin D deficiency, unspecified; D52.8 Other folate deficiency anemias; D50.9 Iron deficiency anemia, unspecified; R76.9 Abnormal immunological finding in serum, unspecified; R94.5 Abnormal results of liver function studies; R94.6 Abnormal results of thyroid function studies
CPT/HCPCS: 81050; 82043; 82570; 84156

== ENCOUNTER 2022-12-24 16:46 | Inpatient (IN) | payer MEDICARE, BC ==
[2022-12-24] VITALS (7 sets, daily range): BP systolic 87–108; BP diastolic 71–83
[~2022-12-24] VITALS: Ht 177.8 cm; Wt 97.6 kg
[2022-12-24 18:03] LABS: BASOPHILS ABSOLUTE AUTO 0.04 K/mm3 (0.00-0.23); BASOPHILS PERCENT AUTO 1 % (0-2); EOSINOPHILS ABSOLUTE AUTO 0.19 K/mm3 (0.00-0.68); EOSINOPHILS PERCENT AUTO 3 % (0-6); Hematocrit 28.3 % (37.0-53.0); Hemoglobin 9.2 g/dL (13.5-17.5); IMMATURE GRAN ABSOLUTE AUTO 0.03 K/mm3 (0.00-0.10); IMMATURE GRAN PERCENT AUTO 0 % (0-1); LYMPHOCYTES ABSOLUTE AUTO 0.88 K/mm3 (0.84-5.20); LYMPHOCYTES PERCENT AUTO 12 % (21-46); MONOCYTES ABSOLUTE AUTO 1.65 K/mm3 (0.16-1.47); MONOCYTES PERCENT AUTO 22 % (4-13); Mean Corpuscular HGB 24.2 pg (26.0-34.0); Mean Corpuscular HGB Conc 32.5 g/dL (31.5-36.5); Mean Corpuscular Volume 75 fL (80-100); Mean Platelet Volume 11.4 fL (9.1-12.4); NEUTROPHILS ABSOLUTE AUTO 4.64 K/mm3 (1.96-9.15); NEUTROPHILS PERCENT AUTO 63 % (41-73); Platelet Count 192 K/mm3 (150-400); RDW Standard Deviation 50.2 fL (35.1-46.3); White Blood Cell Count 7.43 K/mm3 (4.00-11.30)
[2022-12-24 18:20] LABS: Magnesium, Blood 2.2 mg/dL (1.6-2.4)
[2022-12-24 18:24] LABS: Thyroid Stimulating Hormone 15.5 uIU/mL (0.360-4.800)
[2022-12-24 18:31] LABS: International Normalized Ratio 1.64; Prothrombin Time Results 16.7 Sec (9.7-11.5)
[2022-12-24 18:35] LABS: Albumin, Blood 3.2 g/dL (3.4-5.0); Albumin/Globulin Ratio 0.8 (0.8-1.8); Bilirubin, Total 2.4 mg/dL (0.1-1.0); Bun/Creatinine Ratio 18.4 (12.0-20.0); Calcium, Blood 9.4 mg/dL (8.5-10.1); Creatinine, Blood 7.29 mg/dL (0.60-1.20); Globulin, Blood 4.1 g/dL (2.2-4.0); Phosphorus, Blood 6.8 mg/dL (2.5-4.9); Potassium, Blood 4.5 mmol/L (3.5-5.5); Total Protein, Blood 7.3 g/dL (6.4-8.2); Uric Acid, Blood 20.7 mg/dL (3.5-7.2)
[2022-12-24 18:42] LABS: Base Excess Venous 2.4 mmol/L; Bicarbonate Venous 26.3 mmol/L (24.0-30.0); PCO2 Venous 43.3 mmHg (38-42)
[2022-12-25] VITALS (9 sets, daily range): BP systolic 89–108; BP diastolic 59–81
[2022-12-25 04:03] LABS: BASOPHILS ABSOLUTE AUTO 0.05 K/mm3 (0.00-0.23); BASOPHILS PERCENT AUTO 1 % (0-2); EOSINOPHILS PERCENT AUTO 3 % (0-6); Hematocrit 27.3 % (37.0-53.0); Hemoglobin 8.8 g/dL (13.5-17.5); IMMATURE GRAN ABSOLUTE AUTO 0.02 K/mm3 (0.00-0.10); IMMATURE GRAN PERCENT AUTO 0 % (0-1); LYMPHOCYTES ABSOLUTE AUTO 0.88 K/mm3 (0.84-5.20); LYMPHOCYTES PERCENT AUTO 12 % (21-46); MONOCYTES ABSOLUTE AUTO 1.34 K/mm3 (0.16-1.47); MONOCYTES PERCENT AUTO 18 % (4-13); Mean Corpuscular HGB 23.9 pg (26.0-34.0); Mean Corpuscular HGB Conc 32.2 g/dL (31.5-36.5); Mean Corpuscular Volume 74 fL (80-100); Mean Platelet Volume 11.8 fL (9.1-12.4); NEUTROPHILS ABSOLUTE AUTO 4.94 K/mm3 (1.96-9.15); NEUTROPHILS PERCENT AUTO 67 % (41-73); Platelet Count 189 K/mm3 (150-400); RDW Coefficient Variation 18.9 % (11.7-14.2); RDW Standard Deviation 49.8 fL (35.1-46.3); Red Blood Cell Count 3.68 M/mm3 (4.30-5.90); White Blood Cell Count 7.43 K/mm3 (4.00-11.30)
[2022-12-25 04:31] LABS: Anion Gap 13 mmol/L (6-16); Bilirubin, Direct 1.3 mg/dL (0.0-0.3); Blood Urea Nitrogen 128 mg/dL (8-24); Bun/Creatinine Ratio 18.5 (12.0-20.0); CO2, Blood 27 mmol/L (21-32); Calcium, Blood 8.9 mg/dL (8.5-10.1); Chloride, Blood 97 mmol/L (98-108); Creatinine, Blood 6.93 mg/dL (0.60-1.20); Free Thyroxine 0.84 ng/dL (0.70-1.60); Glomerular Filtration Rate 8 (60-); Glucose, Blood 119 mg/dL (70-99); Phosphorus, Blood 6.5 mg/dL (2.5-4.9); Potassium, Blood 4.2 mmol/L (3.5-5.5); Sodium, Blood 137 mmol/L (136-145); Triiodothyronine, Free 1.56 pg/mL (2.18-3.98)
--- NOTE | 2022-12-25 05:47 | NUR ---
End of shift note/ Admit note. Pt admitted this shift about 2200. Pt has denied CP or SOB. Trending BP throughout the night. Multiple reading SBP in 80s. Evening Midorine given. Pt reports he is feeling much better since receiving IVF. Pt has struggled to sleep while here. Requesting PRN sleep aid for tonight. Cardiology consult phoned to answering service. Pt is able to make needs known, call light is within reach.
--- NOTE | 2022-12-25 18:29 | NUR ---
SHIFT SUMMARY: PT HAS BEEN LETHARGIC, ORIENTED x4, ANSWERS QUESTIONS APPROPRIATELY, COOPERATIVE W/CARE, C/O MINIMAL SLEEP LAST NOC AND FEELING TIRED (ORDER FOR PRN SLEEP AID OBTAINED TODAY). PT DENIES SOB, O2 SATS >93% ON RA. PT DENIES CP, JUNCTIONAL RHYTHM W/BBB ON MONITOR, RATE 90s. DIURESIS CONTINUES, ECHO COMPLETED AT BEDSIDE TODAY. PT HAS BEEN SBA, SHOWERS INDEPENDENTLY W/STAFF IN ROOM. MINIMAL PO INTAKE, PT MEDICATED x1 FOR C/O NAUSEA. AT THIS TIME, PT RESTING QUIETLY IN ROOM W/CALL LIGHT IN REACH. WILL CONTINUE TO MONITOR AND TREAT ACCORDINGLY UNTIL CHANGE OF SHIFT.
--- NOTE | 2022-12-25 18:49 | NUR ---
IGNITABLE SOURCES: PT HAS BEEN NEGATIVE FOR IGNITABLE SOURCES WHEN ASSESSED T/OUT THIS SHIFT.
[2022-12-26 03:24] VITALS: BP 96/78
[2022-12-26 03:56] LABS: Hematocrit 29.2 % (37.0-53.0); Hemoglobin 9.4 g/dL (13.5-17.5)
[2022-12-26 04:15] LABS: Albumin, Blood 3.3 g/dL (3.4-5.0); Anion Gap 12 mmol/L (6-16); Blood Urea Nitrogen 139 mg/dL (8-24); Bun/Creatinine Ratio 20.1 (12.0-20.0); CO2, Blood 30 mmol/L (21-32); Calcium, Blood 9.7 mg/dL (8.5-10.1); Chloride, Blood 96 mmol/L (98-108); Glomerular Filtration Rate 8 (60-); Glucose, Blood 151 mg/dL (70-99); Magnesium, Blood 2.1 mg/dL (1.6-2.4); Phosphorus, Blood 6.3 mg/dL (2.5-4.9); Potassium, Blood 4.8 mmol/L (3.5-5.5); Sodium, Blood 138 mmol/L (136-145)
--- NOTE | 2022-12-26 05:09 | NUR ---
End of shift note. Pt was given PRN sleep aid but reports it did not work. HR seems to be higher this shift compared to last night. Pt was mostly in the 110s-120s, even 130 when using the urinal. Pt is able to make needs known, call light is within reach.
[2022-12-26 07:32] LABS: Anti-Xa UFH, PHA Monitoring <0.10 IU/mL; International Normalized Ratio 1.52; Prothrombin Time Results 15.6 Sec (9.7-11.5)
[2022-12-26 07:53] VITALS: BP 111/76
[2022-12-26 12:20] VITALS: BP 106/67
[2022-12-26 16:05] VITALS: BP 99/76
--- NOTE | 2022-12-26 16:38 | NUR ---
DISCHARGE SUMMARY: PT HAS BEEN A&Ox4, BP STABLE EVEN AFTER REINTRODUCING HOME METOPROLOL DOSE. PT HAS BEEN CLEARED FOR DISCHARGE HOME. ALL IV ACCESS DC'd WNL. PT PROVIDED W/DC PAPERWORK AND INSTRUCTIONS. PT's CAREGIVER UPDATED VIA TELEPHONE. PT DEPARTS VIA W/C W/OUT INCIDENT.
--- NOTE | 2022-12-26 18:17 | NUR ---
SHIFT SUMMARY: PT CONTINUES LETHARGIC, PICKING OFTEN AT SCABS ON SHOULDERS/TORSO/NOSE DESPITE REDIRECTION ATTEMPTS AND CAUSING SCABS TO BLEED. SCABS REDRESSED NEEDED. PT DENIES SOB, O2 SATS >93% ON RA. PT DENIES CP, HEART RATE 100-110s. PT CONTINUES TO BE SBA TO/FROM RESTROOM, PT HAS BEEN CAUTIOUS WHILE ON HIS FEET. MINIMAL PO INTAKE CONTINUES, PT DENIES NEED FOR NAUSEA MEDICATION. PT HAS BEEN NEGATIVE FOR IGNITABLE SOURCES/DANGER WHEN ASSESSED T/OUT SHIFT. AT THIS TIME, PT RESTING IN BED W/CALL LIGHT IN REACH. WILL CONTINUE TO MONITOR AND TREAT ACCORDINGLY UNTIL CHANGE OF SHIFT.
[2022-12-26 19:50] VITALS: BP 99/74
--- NOTE | 2022-12-26 21:41 | NUR ---
SAFETY & EDUCATION PT & FAMILY EDUCATED RE: IGNITION SOURCES AND RISK OF INJURY WHILE OXYGEN IS IN USE. PT DENIES SMOKING & PT AND FAMILY VERBALIZE UNDERSTANDING.
[2022-12-26 23:27] VITALS: BP 109/80
[2022-12-27 03:57] VITALS: BP 105/77
[2022-12-27 04:14] LABS: Hematocrit 28.6 % (37.0-53.0); Hemoglobin 9.2 g/dL (13.5-17.5)
[2022-12-27 04:27] LABS: Albumin, Blood 3.2 g/dL (3.4-5.0); Anion Gap 13 mmol/L (6-16); Blood Urea Nitrogen 133 mg/dL (8-24); Bun/Creatinine Ratio 19.2 (12.0-20.0); CO2, Blood 28 mmol/L (21-32); Calcium, Blood 9.5 mg/dL (8.5-10.1); Chloride, Blood 95 mmol/L (98-108); Creatinine, Blood 6.91 mg/dL (0.60-1.20); Glomerular Filtration Rate 8 (60-); Glucose, Blood 130 mg/dL (70-99); Phosphorus, Blood 6.4 mg/dL (2.5-4.9); Potassium, Blood 4.1 mmol/L (3.5-5.5); Sodium, Blood 136 mmol/L (136-145)
[2022-12-27 04:32] LABS: Mean Platelet Volume 11.5 fL (9.1-12.4); Platelet Count 198 K/mm3 (150-400)
--- NOTE | 2022-12-27 05:11 | NUR ---
SHIFT SUMMARY SEE PREVIOUS NOTE. PT A&Ox4, COMMUNICATES NEEDS APPROPRIATELY. DOES NOT USE CALL LIGHT AND HAS SET BEDALARM OFF MULTIPLE TIMES THROUGHOUT SHIFT DESPITE EDUCATION ELEVATOR TROUBLESHOOTER LIGHT. PT ALSO WILL NOT STOP PICKING AT SKIN RESULTING IN LITTLE SCABS/BLEEDING SPOTS. BP STABLE, ACC JUNC w/ BBB 90-120's, DENIES CP/PRESSURE. SpO2> 92% RA, DENIES CP/PRESSURE. CONTINENT OF URINE, USES URINAL AT BEDSIDE WITH ASSISTANCE. NO BM THIS SHIFT. HEPARIN gtt INFUSING PER EMAR, MANAGED BY PHARMACY. NO OTHER EVENTS, WILL REPORT TO ONCOMING RN.
[2022-12-27 07:51] VITALS: BP 103/77
--- NOTE | 2022-12-27 08:20 | NUR ---
Am note Pt alert, oriented X3, unsure of date, states november for the month, october for the year. Pt restless this am, report that he did not sleep last night. Pt denies pain, chest pain/pressure, sob, nausea, dizziness and numb/tingling. Pt tele junctional tachy at 120's, bp wnl. Spo2 >90% on ra, breathing even and unlabored, bases dim. Abd soft, nontender. Pt has heparin gtt infusing. PT has scabs scattered t/o body and is constantly picking at them and making them bleed. Other vss. No other acute changes noted. Will continue to monitor.
[2022-12-27 11:06] VITALS: BP 92/65
--- NOTE | 2022-12-27 16:13 | NUR ---
Pt restless most of AM. Setting off bed alram to sit at side of bed. Says he is tired and wants up, then says he doesn't want the chair, wants the bed. Told pt he is in the bed and can lay down. Pt would lay down and keep repeating this severl times today. bed alarm on all day. Pt says he just needs to sleep but can't. RN notifed.
[2022-12-27 16:45] VITALS: BP 105/74
--- NOTE | 2022-12-27 18:08 | NUR ---
Spoke with Primary RN Gem who reports Pt may benefit from Palliative Care Consult as Pt stated earlier he would not want dialysis if kidney function worsens. Pt resting in bed upon arrival. Pt is A&OX3. Pt unable to give appropriate reason for hospital stay. Pt is able to verbalize place, current year, and current senior vice president and chief information officer. Pt denies pain, dyspnea, nausea, and dyspnea. Pt reports being and spouse will be back at somepoint. Pt picking at scabs. Pt appears graugy, weak, and lethargic. Brief discussion regarding wishes towards dialysis if recommended. Pt reports not willing for dialysis. Assessed Pt's understanding of denying care. Pt states "I will ". Pt reports being sleepy and states he hasn't slept in 3 days. Ended visit to allow Pt to rest. Pt agreeable for this RN to F/U tomorrow when spouse is at bedside. Palliative Care will remain available
--- NOTE | 2022-12-27 18:29 | NUR ---
Shift Summary Reduced stimulation in room t/o shift, pt attempting to sleep. Pt continues to be restless t/o shift. Pt continues to pick at wounds, replaced linens and bandages several times t/o shift. Hr trending down, 110's this evening from 120-130's this am. BP stable with midorine. Spo2 >90% on ra. Pt reporting aches and nausea, medicated per emar. Other vss. No other acute changes noted. Will continue to monitor.
[2022-12-27 19:28] VITALS: BP 100/67
--- NOTE | 2022-12-27 20:28 | NUR ---
ASSUMPTION OF CARE THIS RN ASSUMED CARE OF PATIENT AT 1900. REPORT TAKEN FROM [facility] PALENCIA. PT A&O X4. ABLE TO MAKE NEEDS KNOWN BUT REPORTEDLY RESISTANT TO USING CALL LIGHT FOR NEEDS. BED ALARM ON FOR SAFETY. PT REPORTS BEING "TIRED" AT SHIFT CHANGE. HEP GTT INFUSING PER EMAR. JUNCTION TACHYCARDIA WITH BBB NOTED WITH HR 110'S; MEDICATED WITH PO AMIODARONE PER EMAR. BP STABLE WITH SBP 100'S. ON 1L FLUID RESTRICTION; PT UNDERSTOOD EDUCATION ABOUT FLUID RESTRICTION. PT ABLE TO TURN SELF IN BED INDEPENDENTLY. CONDOM CATH IN PLACE AND DRAINING YELLOW URINE TO GRAVITY. BED IN LOWEST POSITION AND CALL LIGHT WITHIN REACH.
[2022-12-27 23:06] VITALS: BP 109/71
[2022-12-28 05:01] VITALS: BP 132/93
[2022-12-28 05:21] LABS: BASOPHILS ABSOLUTE AUTO 0.03 K/mm3 (0.00-0.23); BASOPHILS PERCENT AUTO 0 % (0-2); EOSINOPHILS PERCENT AUTO 1 % (0-6); Hematocrit 26.3 % (37.0-53.0); Hemoglobin 8.7 g/dL (13.5-17.5); IMMATURE GRAN ABSOLUTE AUTO 0.04 K/mm3 (0.00-0.10); IMMATURE GRAN PERCENT AUTO 1 % (0-1); LYMPHOCYTES ABSOLUTE AUTO 0.72 K/mm3 (0.84-5.20); LYMPHOCYTES PERCENT AUTO 8 % (21-46); MONOCYTES ABSOLUTE AUTO 1.32 K/mm3 (0.16-1.47); MONOCYTES PERCENT AUTO 15 % (4-13); Mean Corpuscular HGB Conc 33.1 g/dL (31.5-36.5); Mean Corpuscular Volume 73 fL (80-100); NEUTROPHILS ABSOLUTE AUTO 6.41 K/mm3 (1.96-9.15); NEUTROPHILS PERCENT AUTO 74 % (41-73); Platelet Count 195 K/mm3 (150-400); RDW Coefficient Variation 19.1 % (11.7-14.2); RDW Standard Deviation 49.3 fL (35.1-46.3); Red Blood Cell Count 3.63 M/mm3 (4.30-5.90); White Blood Cell Count 8.62 K/mm3 (4.00-11.30)
--- NOTE | 2022-12-28 05:38 | NUR ---
SHIFT SUMMARY NO ACUTE CHANGES OVERNIGHT. VITALS REMAIN UNCHANGED FROM PREVIOUS NOTE. PT OCCASIONALLY SETTING BED ALARM OFF DURING THIS SHIFT BUT APPEARS TO HAVE SLEPT THE MAJORITY OF THIS SHIFT. PT CONTINUES TO SCRATCH SCABS AND BLEED; CHANGING BEDDING AND DRESSINGS SEVERAL TIMES THIS SHIFT. BED IN LOWEST POSITION AND CALL LIGHT WITHIN REACH. THIS RN WILL CONTINUE TO MONITOR UNTIL SHIFT CHANGE AT 0700.
[2022-12-28 05:41] LABS: Mean Platelet Volume 12.1 fL (9.1-12.4)
[2022-12-28 06:00] LABS: Anion Gap 15 mmol/L (6-16); Blood Urea Nitrogen 142 mg/dL (8-24); Bun/Creatinine Ratio 18.8 (12.0-20.0); CO2, Blood 27 mmol/L (21-32); Calcium, Blood 9.4 mg/dL (8.5-10.1); Chloride, Blood 95 mmol/L (98-108); Creatinine, Blood 7.56 mg/dL (0.60-1.20); Glomerular Filtration Rate 7 (60-); Glucose, Blood 133 mg/dL (70-99); Magnesium, Blood 2.2 mg/dL (1.6-2.4); Phosphorus, Blood 7.1 mg/dL (2.5-4.9); Potassium, Blood 4.3 mmol/L (3.5-5.5); Sodium, Blood 137 mmol/L (136-145)
[2022-12-28 08:10] VITALS: BP 136/117
--- NOTE | 2022-12-28 11:25 | NUR ---
Pt resting in bed upon arrival. Pt reporting generalized pain but unable to report intensity. FLACC 3/10. Pt's daughter Amy at bedside. Engaged in therapeutic listening as Amy reports Pt's spouse Diana is having cataract surgery this AM. Dr Moss had called Diana and recommended Dialysis. Daughter confirms Pt does not want dialysis and family understands but wish he would reconsider. Pt confirms his wishes are not for dialysis. Engaged in therapeutic conversation regarding hospice. Educated on hospice and comfort care philosophy. Offered therapeutic listening and answered questions. During second visit daughter Amy reports family is agreeable with comfort care and hospice. Spouse Diana calls during conversation and is placed on speaker phone. Answered questions and validated concerns. Spouse Diana reports plan to come in today and speak with Pt to confirm his wishes. No other concerns reported at this time. Spoke with Primary RN Moses, RN File Machine Operator Inge, Dr Rodriguez and discussed case. Palliative Care will remain available
--- NOTE | 2022-12-28 12:35 | NUR ---
Spiritual care visit conducted. Pt is lying in bed and alert. He immediately tells me that he feels he has a choice before him to pursue dialysis or go home on hospice and that he chooses hospice. He states that he wants to begin immediately because he wants to go home and does not want to in a hospital. He states that he wants immediate medications for pain and to sleep. I have this conversation with Eileen, the pt's dtr and then continue the conversationincluding Miguel Angel Aguayo our Palliative RN and pt's spouse Diana via cell phone. Fortunately all parties align with the patient's wishes and Miguel Angel immediately begins the process to move pt to comfort care and home on hospice. I discuss and dying, family unit complications, the ache of things that will be missed and people he failed to invest more in. We discuss his view of the afterlife and his fears. I provide therapeutic listening, a calming presence, gentle elder counselor and advocacy for the pt's wishes to be followed. Patient and Eileen responded well and showed signs of greater peace.
--- NOTE | 2022-12-28 13:05 | NUR ---
PATIENT DISCUSSED CARE WITH DR LESLIE, PALLIATIVE CARE, SPIRITUAL CARE, [id number] NED, AND SPOUSE AGUSTIN. DECISION WAS MADE TO BEGIN COMFORT CARE. ORDERS UNDER DR LESLIE WERE PLACED BY PALLIATIVE CARE. PATIENT RESTING IN BED AND REPORT PAIN, MEDICATED WITH ROXANOL PER EMAR. TELE AND HEPARIN DISCONTINUED. [id number] NED ATTENTIVE AT BEDSIDE.
--- NOTE | 2022-12-28 13:16 | NUR ---
Spoke with Chaplain Chen reporting Pt wanting to move forward with comfort care and hospice. Joint visit with this PC RN and Chaplain Chen. Pt comfirms wanting comfort care and hospice. Daughter Amy at bedside. Amy reaches spouse Diana on speaker phone. Revisted Pt's wishes of comfort care and hospice. Spouse speaks with Pt over speaker phone and spouse Diana is agreeable to move forward with comfort care and hospice. Diana confirms wanting hospice agency that is available the soonest. Called and spoke with all 3 agencies. [facility] available to admit tomorrow. Pt and family agreeable with [facility]. Spoke with Dr Rodriguez and discussed case. Placed comfort care order, comfort care order set, D/C maintenance medications per V/O from Dr Rodriguez. Spoke with RN Therapeutic Recreation Leader Inge and discussed case. Inge will send referral to [facility]. Palliative Care will remain available.
--- NOTE | 2022-12-28 16:04 | NUR ---
TRANSFER NOTE PATIENT TRIED SOME PINEAPPLE JUICE BUT BECAME NAUSEATED AND VOMITED. MEDICATED WITH ZOFRAN AND ATIVAN AND ROXANOL PER EMAR. BED LINENS CHANGED. PATIENT RESTING COMFORTABLY IN BED, MILD SNORING. REPORT GIVEN TO MEDICAL FLOOR SLIME PATEL. PATIENT TRANSPORTED TO ROOM 356 AT 1545 VIA BED.
--- NOTE | 2022-12-28 18:21 | NUR ---
SHIFT SUMMARY ARRIVED TO MEDICAL FLOOR COMFORTABLY RESTING, CONTINUED THIS WAY ENTIRE REST OF SHIFT. NO MEDICATIONS GIVEN. DAUGHTERS AT BEDSIDE INTERMITTENTLY. WEARING CONDOM CATH, DRAINING LESS THAN 100 SINCE ARRIVAL TO FLOOR. WILL CONTINUE TO [facility]
--- NOTE | 2022-12-28 18:36 | NUR ---
CARDIAC NURSE ENCOUNTER NURSE TO MED FLOOR TO DEACTIVATE ICD IMPLANT.
--- NOTE | 2022-12-28 18:47 | NUR ---
PHYSICIAN CONTACT PATIENT WAS EDUCATED ON NON-WEIGHT BEARING STATUS, STOOD ON SURGICAL FOOT FULL WEIGHT. SURGICAL SITE BLEEDING, ORDERS TO REINFORCE DRESSING, ICE AND ELELVATE, MONITOR AND DR HERRERA WOULD BE IN THE AM TO ASSESS. WILL CONTINUE TO MONITOR
[2022-12-28 20:17] VITALS: BP 101/78
[2022-12-28 20:19] VITALS: BP 101/78
--- NOTE | 2022-12-28 20:27 | NUR ---
1930 and son of patient at bedside. Pt is sleeping soundly. and son feel that the patient will make a different decsion about dialysis and comfort care status tomorrow after getting a good nights some sleep. States he has not slept for 3 weeks. voices concerns that she was asked to make this decision while she was in the surgical center having a proceedure. She states she kept asking for pallative care nurse and hospice nurse to wait until tomorrow to make his status change so she could talk with her and make sure he was making his decision for the right reasons. She felt that she asked multiple times and that she was not listened to. Son is tearful and wants his father to not be a comfort care at this time. Discussed at length with son and concerning patient code status. They are okay with patient being a DNR because he made this decision in the past. Son does however want everything done tonight except calling a code. Varinder TELLO hospitalist notified, pt is to be taken off comfort care at this time. Continue DNR status. Also possible family dynamics, son said that Eileen the daughter is not really the one to be making these decisions. Family wants to be notified of any changes in pt condition. code status and
--- NOTE | 2022-12-28 21:39 | NUR ---
2139 Patient son Jon notified by phone that AICD had been deactivated today, and that he was not on telemetry monitoring. He was okay with that. He was also notified that patient respirations were only 8 and that was less than they had been earlier at 12. Patient does open eyes and say HI when talked to but drifts right back to sleep.
[2022-12-29] VITALS (13 sets, daily range): BP systolic 81–110; BP diastolic 61–79
[2022-12-29 05:21] LABS: BASOPHILS ABSOLUTE AUTO 0.04 K/mm3 (0.00-0.23); BASOPHILS PERCENT AUTO 0 % (0-2); EOSINOPHILS ABSOLUTE AUTO 0.11 K/mm3 (0.00-0.68); EOSINOPHILS PERCENT AUTO 1 % (0-6); Hematocrit 30.1 % (37.0-53.0); Hemoglobin 9.6 g/dL (13.5-17.5); IMMATURE GRAN ABSOLUTE AUTO 0.07 K/mm3 (0.00-0.10); IMMATURE GRAN PERCENT AUTO 1 % (0-1); LYMPHOCYTES ABSOLUTE AUTO 0.73 K/mm3 (0.84-5.20); LYMPHOCYTES PERCENT AUTO 7 % (21-46); MONOCYTES ABSOLUTE AUTO 1.64 K/mm3 (0.16-1.47); MONOCYTES PERCENT AUTO 17 % (4-13); Mean Corpuscular HGB 23.6 pg (26.0-34.0); Mean Corpuscular HGB Conc 31.9 g/dL (31.5-36.5); Mean Corpuscular Volume 74 fL (80-100); NEUTROPHILS ABSOLUTE AUTO 7.25 K/mm3 (1.96-9.15); NEUTROPHILS PERCENT AUTO 74 % (41-73); Platelet Count 218 K/mm3 (150-400); RDW Coefficient Variation 19.5 % (11.7-14.2); RDW Standard Deviation 50.9 fL (35.1-46.3); Red Blood Cell Count 4.06 M/mm3 (4.30-5.90); White Blood Cell Count 9.84 K/mm3 (4.00-11.30)
[2022-12-29 06:00] LABS: Magnesium, Blood 2.3 mg/dL (1.6-2.4)
[2022-12-29 06:03] LABS: Albumin, Blood 3.4 g/dL (3.4-5.0); Albumin/Globulin Ratio 0.8 (0.8-1.8); Bun/Creatinine Ratio 18.2 (12.0-20.0); Calcium, Blood 9.4 mg/dL (8.5-10.1); Creatinine, Blood 8.24 mg/dL (0.60-1.20); Phosphorus, Blood 8.6 mg/dL (2.5-4.9); Potassium, Blood 4.6 mmol/L (3.5-5.5); Total Protein, Blood 7.4 g/dL (6.4-8.2)
--- NOTE | 2022-12-29 07:10 | NUR ---
Rn summary: Patient has rested well, more alert and awaking more often as the shift progresses. Pt is aware he is at [facility]. Does respond appropriately to questions. Pt did have some nausia and received zofran x1. Pt states he is feeling better today. Pt with critical creatinine labs 8.24, phos 8.6. Dr. Moss notified. Pt did take 2 sips of water. Has a slow swallow response. Protonix held this am. Power glide draws and flushes without difficutly. Pt has scattered bruises and scabs that he picks at. Condom cath in place, scant urine in bag. Call light in reach, bed alarm on.
--- NOTE | 2022-12-29 09:04 | NUR ---
ASSUMED CARE AND COMFORT OF THIS PATIENT AT 0700 FROM YAQUELIN PALENCIA. PATIENT WAS REMOVED FROM COMFORT CARE LAST NOC PER FAMILY REQUEST. HE IS AO X 3 THIS AM. HE KNOWS WHERE HE IS WHAT MONTH AND YEAR IT IS BUT NOT THE PRESIDENT. HE IS ALSO ADAMENTLY REQUESTING TO GO HOME. [place] [id number] THIS AM. IS VERY UPSET AND YELLING AT ENVIRONMENTAL TECH ALFRED AND WHEN THIS RN ENTERS ROOM STARTS YELLING AT ME. MARISABEL PALENCIACHILDREN'S AUTHOR AND SHARLENE PALENCIA COORDINATOR GO TO ROOM TO TRY AND CALM FAMILY MEMBER DOWN AND TO SET BOUNDRIES FOR FAMILY. AKUA JJ RNINDUSTRIAL COOK MEETS WITH FAMILY AND PATIENT. PATIENT IS STILL SAYING HE DOES NOT WANT DIALYSIS HOWEVER SON AND MOTHER ARE INSISTING HE HAVE IT. ETHICS CONSULT PLACED BY AKUA PALENCIA FOR DIRECTION OF CARE ASSISTANCE. THIS RN WILL REMAIN AVAILABLE FOR THE PAITENT AND FAMILY FOR ANY WANTS OR NEEDS.
--- NOTE | 2022-12-29 09:55 | NUR ---
Met with spouse and son in Pt's room. Offered therapeutic listening as family discusses reasons for revearsing plan of care. Spouse reports feeling pushed in to agreeing with comfort care and hospice as she recieved a couple phone calls. Continued therapeutic listening and validated concerns. Instructed the intent of phone calls were not to push but relay Pt's frustrations in not wanting to wait. Spouse admitts Pt does not want to do dialysis but wants to consider what Dr Moss has been saying. She reports Dr Moss spoke with her and Pt would only need to dialysis a couple times a week. Continued therapeutic listening and answered questions. Spouse states "I agreed to this because this is what he wanted but I can't take care of him in this condition". Discussed Pt's daughter Amy willingness to assist with care. Family reports she would not be reliable. Family would like transport cancelled and hospice cancelled for now. They report they will consider goals of care in a couple of days. Pt A&OX3 unable to give appropriate reason for hospital stay. Is able to verbalize correct year, place, and current senior vice president and chief information officer. When asking Pt if he understands what is going on with his kidney's he states "yes they are shot". Pt does appear weak and lethargic. Placed Ethics Consult per V/O from Dr Rodriguez. Spoke with Primary RN Kim, DARVIN Smith, Dr Starkey and discussed case. Palliative Care will remain available
--- NOTE | 2022-12-29 09:58 | NUR ---
Ethics consult order processed. Medical history, family dynamics, and case notes reviewed. The principal has end stage renal failure and has expressed amenability to hospice matriculation. While the principal was sleeping, the family requested / insisted that the patients wishes be circumvented and his status of comfort care be rescinded. If the principal possesses sufficient capacity for medical decision making, and he prefers to be EOL, then despite the familys opposition, his treatment wishes should be accomodated and enforced. Allowing the principals family to override the plan of care, as stipulated by a neurologically intact patient, constitutes an affront to the principals dignity, and a conspicuous violation of his privelege of choice. Thank you for this consult. Miguel Angel Conteh, PhD, NHUNG
--- NOTE | 2022-12-29 12:30 | NUR ---
Joint visit with Dr Rodriguez. Dr Rodriguez speaking with family out in [place] discussing goals of care. Family was instructed on the need to follow Pt's wishes and plan will be comfort care. Family goes into Pt's room with this RN and Dr Rodriguez following a few seconds behind. Spouse states "get out" and son request family to a few minutes alone with Pt. After a few minutes family allows this RN and Dr Rodriguez in. Engaged in conversation with Pt regarding goals of care. When asking Pt about wishes towards dialysis Pt states "well that's what they want". Asked Pt what he wants Pt states "what ever". Dr Rodriguez will place orders for perma cath placement and reactivation of ICD. Pt to be transfered to PCU. Palliative Care will remain available.
--- NOTE | 2022-12-29 14:13 | NUR ---
PCU ARRIVAL PT BROUGHT TO PCU-19 BY BED FROM MEDICAL FLOOR @ APPROX 1400. PT LETHARGIC, ONLY ABLE TO OPEN EYES FOR A FEW MOMENTS BEFORE GOING BACK TO SLEEP WHEN SPOKEN TO. PT HAS TO BE RE-WOKEN MULTIPLE TIMES FOR ASSESSMENT/INTERACTION. PT SPEECH VERY MUMBLED & WEAK. PT REPORTING LOCATION "[place]" & DATE "JANUARY 05, 2008" WHEN ASKED TO TRY CURRENT YEAR AGAIN, PT REPORTING "2008." PT BACK TO SLEEP, REWOKEN AGAIN. WHEN ASKING PT HOW HE FEELS ABOUT PREVIOUSLY BEING ON COMFORT CARE, BUT NOW SEEKING FULL TREATMENT, PT MUMBLING "I FELT PRETTY GOOD THIS MORNING, BUT I DON'T KNOW NOW." PT BACK TO SLEEP. PT RE-WOKEN & ASKED ABOUT FEELINGS REGARDING POTENTIAL PLAN FOR PERMCATH PLACEMENT. PT WHISPERING/MUMBLING "I GUESS. I DON'T KNOW." THEN PT BACK TO SLEEP. NO FAMILY PRESENT @ THIS TIME. DNR BAND ON. BP SOFT. MONITOR SHOWING ST W/ BBB, HR 110s-120s. SPO2 > 92% ON RA. PT REQUESTING WATER. PT NOT ALERT ENOUGH FOR SAFE PO INTAKE. BED ALARM ON.
[2022-12-29 16:20] LABS: PCO2 Arterial 40.2 mmHg (35-45); pH Blood Arterial 7.42 (7.35-7.45)
--- NOTE | 2022-12-29 17:37 | NUR ---
UPDATE PT CONTINUES TO BE LETHARGIC. PT W/ EPISODE OF OPENING EYES, THEN FULL BODY BECOMING TENSE & RIGID W/ ARMS EXTENDED AT SIDES. PT EYES BECOMING WIDE W/ FIXED GAZE. THIS PERSISTED FOR ABOUT 5 SECONDS. PT DAUGHTERS REPORTING THIS HAPPENING A SECOND TIME. MD WONG & MD LESLIE NOTIFIED. MD LESLIE W/ ORDERS FOR LABS, SEIZURE PRECUATIONS & TRANSFER TO ICU FOR TEMPORARY DIAYLSIS CATH PLACEMENT & DIALYSIS TREATMENT TONIGHT. BLENDING TANK TENDER AT BEDSIDE INSERTING DIALYSIS CATH IN PT RM AT THIS TIME. MD LESLIE UPDATED ON CRITICAL LACTIC ACID & ELEVATED PROLACTIN. MD LESLIE STATES WILL PUT IN ORDERS.
--- NOTE | 2022-12-29 17:43 | NUR ---
Brief supportive visit this evening. Pt resting in bed with his eyes closed. Pt's twin daughters at bedside. Provided update on plan of care. Offered therapeutic listening and answered questions. Attempted to contact heart center to determine if Pt's ICD was reactivated but no answer. Contacted [employer] Froylan Canas. He reports working in [employer] today and can check tomorrow regarding Pt's ICD. Possible another Corby leary was here at the hospital today. Palliative Care will remain available
--- NOTE | 2022-12-29 18:04 | NUR ---
Spoke with Nursing Grant Specialist Anju Rene. She contact [employer] rep working the hospital today. Rep confirms Pt's ICD was reactivated today.
--- NOTE | 2022-12-29 18:12 | NUR ---
UPDATE MD LESLIE & MD WONG W/ CARLOS FOR PT TO REMAIN IN PCU. PT GONE FOR HEAD CT AT THIS TIME. PLAN FOR DIALYSIS NURSE TO INITIATE DIALYSIS IN PT RM THIS EVENING. FAMILY AT BEDSIDE/IN NG.
[2022-12-30] VITALS (36 sets, daily range): BP systolic 70–182; BP diastolic 37–153
--- NOTE | 2022-12-30 04:15 | NUR ---
SHIFT SUMMARY: PATIENT DID HAVE A 14 BEAT RUN OF V-TACH AT 0356 THIS MORNING. PATIENT DURING THAT TIME CONTINUED TO SNORE LAYING IN BED WITH CALL LIGHT IN REACH. DR. SALINAS WAS NOTIFIED AND HE THEN ORDERED AN ADDITIONAL LAB ORDER FOR MAGNESIUM WITH MORNING LABS. PATIENT CONTINUES TO BE LETHARGIC AND INTERMITTENTLY WAKES UP BUT ANSWERS ONE QUESTION WITH MUMBLED SPEECH THEN FALLS BACK ASLEEP. POWERGLIDE IN JOIE FLUSHES BUT DOES NOT DRAW BLOOD. A NEW CONDOM CATH IN PLACE. PATIENT CONTINUES TO LAY IN BED WITH CALL LIGHT IN REACH.
[2022-12-30 05:17] LABS: Albumin, Blood 3.8 g/dL (3.4-5.0); Albumin/Globulin Ratio 1.1 (0.8-1.8); Bilirubin, Total 3.5 mg/dL (0.1-1.0); Bun/Creatinine Ratio 16.8 (12.0-20.0); Calcium, Blood 9.2 mg/dL (8.5-10.1); Creatinine, Blood 7.86 mg/dL (0.60-1.20); Globulin, Blood 3.6 g/dL (2.2-4.0); Magnesium, Blood 2.4 mg/dL (1.6-2.4); Potassium, Blood 5.6 mmol/L (3.5-5.5); Total Protein, Blood 7.4 g/dL (6.4-8.2)
[2022-12-30 06:37] LABS: BASOPHILS ABSOLUTE AUTO 0.03 K/mm3 (0.00-0.23); BASOPHILS PERCENT AUTO 0 % (0-2); EOSINOPHILS ABSOLUTE AUTO 0.15 K/mm3 (0.00-0.68); EOSINOPHILS PERCENT AUTO 1 % (0-6); Hematocrit 29.2 % (37.0-53.0); Hemoglobin 9.2 g/dL (13.5-17.5); IMMATURE GRAN ABSOLUTE AUTO 0.05 K/mm3 (0.00-0.10); IMMATURE GRAN PERCENT AUTO 1 % (0-1); LYMPHOCYTES ABSOLUTE AUTO 0.55 K/mm3 (0.84-5.20); LYMPHOCYTES PERCENT AUTO 5 % (21-46); MONOCYTES ABSOLUTE AUTO 1.64 K/mm3 (0.16-1.47); MONOCYTES PERCENT AUTO 15 % (4-13); Mean Corpuscular HGB 23.6 pg (26.0-34.0); Mean Corpuscular HGB Conc 31.5 g/dL (31.5-36.5); Mean Corpuscular Volume 75 fL (80-100); NEUTROPHILS ABSOLUTE AUTO 8.67 K/mm3 (1.96-9.15); NEUTROPHILS PERCENT AUTO 78 % (41-73); Platelet Count 149 K/mm3 (150-400); RDW Coefficient Variation 19.7 % (11.7-14.2); RDW Standard Deviation 51.9 fL (35.1-46.3); White Blood Cell Count 11.09 K/mm3 (4.00-11.30)
--- NOTE | 2022-12-30 09:39 | NUR ---
AM NOTE: UPON SHIFT START PATIENT SWINGING LEGS OVER SIDE OF BED AND MUMBLING TO SELF. PATIENT OPENING EYES TO VOICE AND TOUCH. VERY LETHARGIC, NOT ABLE TO KEEP ATTENTION. FOLLOWING VERY SIMPLE COMMANDS SUCH - OPEN EYES. SPEECH MUMBLED AND SOFT, MAKING IT VERY DIFFICULT TO UNDERSTAND. PUPILS EQUAL AND REACTIVE. PATIENT NOT ABLE TO FOLLOW COMMANDS TO HOLD ARMS UP AND MOVE EXTREMITIES UPON DEMAND, ALTHOUGH MOVING ARMS AND LEGS IND IN BED. BEDREST WITH Q2 TURNS. ATTENDS AND CONDOM CATH IN PLACE. PATIENT ANSWERING SIMPLE YES AND NO QUESTIONS. STATES "NO" TO THIS RN QUESTIONING ABOUT PAIN. ON ROOM AIR SATING ABOVE 93%. LUNGS SOUNDING CLEAR AND DIM IN BASES. RESPIRATIONS EVEN AND UNLABORED. BOWEL TONES PRESENT. NPO AT THIS TIME. PATIENT UNABLE TO KEEP ATTENTION TO SAFELY SWALLOW AND STRUGGLING WITH SECRETIONS THIS AM DURING ORAL CARE. SPEECH THERAPY ORDERS IN PLACE. TELE SHOWING ST WITH 1ST DEGREE BLOCK. HR 90-120'S. BP ON SOFTER SIDE. AICD. DENIES CHEST PAIN/PRESSURE/PALPITATIONS. POWERGLIDE TO JOIE. DIALYSIS THIS AM AT 0800. DIALYSIS CATH WNL, TO RIGHT GROIN. SCABS THROUGHOUT ARMS, CHEST, FACE AND HEAD. MEPILEX ON HEAD COVERING SCABS. Q6 BLOOD SUGAR CHECKS. SEIZURE PRECAUTIONS IN PLACE. DR. LESLIE BY THIS AM. ORDERS FOR THIS RN TO PLACE INCLUDE: NPO, SPEECH THERAPY, IV KEPPRA 500MG ONCE AFTER DIALYSIS THIS AM. ORDERS IN PLACE. ADMINISTRATIVE ASSISTANT FRONT DESK CALLED THIS NURSE ASKING FOR ZOFRAN. PATIENT DRY HEAVING, ZOFRAN BROUGHT TO DIALSIS AND GIVEN TO PATIENT.
--- NOTE | 2022-12-30 12:59 | NUR ---
PATIENT BP POST DIALYSIS ON SOFT SIDE WITH SBP IN THE 80'S. DR. LESLIE UPDATED. PLAN FOR 250ML LR BOLUS. BOLUS INFUSED. BP 83/64 (72). DR. LESLIE UPDATED ON BLOOD PRESSURE. NO NEW ORDERS AT THIS TIME.
--- NOTE | 2022-12-30 14:55 | NUR ---
DAUGHTERS AT BEDSIDE. PALLIATIVE CARE RN IN TO DISCUSS CARE WITH FAMILY. PATIENT REMAINS LETHARGIC, NOT ABLE TO PARTICIPATE IN MEANINGFULLY CONVERSATION. AFTERNOON ORAL CARE COMPLETED. SPEECH THERAPY ATTEMPT TO SEE PATIENT, PLAN TO RE-EVAL IN AM WITH HOPES PATIENT WILL BE MORE AWAKE AND ABLE TO PARTICIPATE. Q2 TURNING AND NEEDED.
--- NOTE | 2022-12-30 15:13 | NUR ---
Case Conference Note Spoke with Pt's twin daughters out in [place]. Offered therapeutic listening and ansewred questions. Daughters express concerns regarding Pt's increase somnolence. Validated concerns and continued therapeutic listening. Daughters expresses appreciation and report no other concerns at this time. Spoke with Primary RN Lluvia and discussed case. Palliative Care will remain available
--- NOTE | 2022-12-30 15:44 | NUR ---
DR. LESLIE UPATED ON LOW BP OF 81/59 (68). ORDERS FOR IV ALBUMIN PLACED BY DR. LESLIE. ALBUMIN INFUSING AT THIS TIME. DAUGHTERS UPDATED AT BEDSIDE.
--- NOTE | 2022-12-30 16:58 | NUR ---
DR. LESLIE UPDATED ON BLOOD PRESSURE. NEW ORDERS FOR ADDITONAL IV ALBUMIN INFUSION. ALBUMIN INFUSING AT THIS TIME. DAUGHTERS REMAIN AT BEDSIDE. REYES TO BE IN SHORTLY. PATIENT STATES "THROW UP". ZOFRAN GIVEN, PER EMAR. PATIENT NOT ABLE TO STAY AWAKE AND ANSWER QUESTIONS, FALLS ASLEEP QUICKLY ONCE WOKEN.
--- NOTE | 2022-12-30 17:54 | NUR ---
REYES TO BEDSIDE. THIS RN UPDATED ON EVENTS THROUGHOUT DAY AND SOFT BLOOD PRESSURE. 2ND ALBUMIN INFUSION COMPLETED. NO CHANGES TO NEURO, SEE PREVIOUS NOTES. PATIENT REMAINS LETHARGIC, ANSWERING SIMPLE QUESTIONS, VERY HARD TO UNDERSTAND. ONLY KEEPING ATTENTION FOR 10-15 SECONDS. Q2 TURNING, Q6 BLOOD SUGARS. PATIENT NOT SAFE TO SWALLOW THIS SHIFT. PLAN FOR SPEECH EVAL IN AM. CONDOM CATH REMAINS IN PLACE. NO URINE OUTPUT. DIALYSIS THIS AM. CALL LIGHT IN REACH. BED ALARM IN PLACE. AT BEDSIDE.
[2022-12-31] VITALS (20 sets, daily range): BP systolic 81–104; BP diastolic 53–78
[2022-12-31 01:07] LABS: HBSAG SCREEN Negative (Negative); HCV AB Non Reactive (Non Reactive); HEP A AB, IGM Negative (Negative); HEP B CORE AB, IGM Negative (Negative)
[2022-12-31 04:27] LABS: BASOPHILS ABSOLUTE AUTO 0.04 K/mm3 (0.00-0.23); BASOPHILS PERCENT AUTO 0 % (0-2); EOSINOPHILS ABSOLUTE AUTO 0.23 K/mm3 (0.00-0.68); EOSINOPHILS PERCENT AUTO 2 % (0-6); Hematocrit 28.5 % (37.0-53.0); Hemoglobin 8.9 g/dL (13.5-17.5); IMMATURE GRAN ABSOLUTE AUTO 0.03 K/mm3 (0.00-0.10); IMMATURE GRAN PERCENT AUTO 0 % (0-1); LYMPHOCYTES PERCENT AUTO 5 % (21-46); MONOCYTES ABSOLUTE AUTO 1.44 K/mm3 (0.16-1.47); MONOCYTES PERCENT AUTO 14 % (4-13); Mean Corpuscular HGB 23.7 pg (26.0-34.0); Mean Corpuscular HGB Conc 31.2 g/dL (31.5-36.5); Mean Corpuscular Volume 76 fL (80-100); NEUTROPHILS ABSOLUTE AUTO 7.75 K/mm3 (1.96-9.15); NEUTROPHILS PERCENT AUTO 78 % (41-73); Platelet Count 129 K/mm3 (150-400); RDW Standard Deviation 53.2 fL (35.1-46.3); Red Blood Cell Count 3.76 M/mm3 (4.30-5.90); White Blood Cell Count 9.99 K/mm3 (4.00-11.30)
--- NOTE | 2022-12-31 05:19 | NUR ---
SHIFT SUMMARY NO ACUTE EVENTS T/O NIGHT. PT REMAINS LETHARGIC AND SOMULENT. DIFFICULT TO UNDERSTAND AT TIMES. ABLE TO SQUEEZE HANDS AND MOVE LEGS ON COMMAND. ABLE TO TELL THIS NURSE HIS NAME, THAT HES AT A HOSPITAL, AND YEAR. PT ASKING FOR WATER AND STATING "I WANT TO GO HOME". EDUCATED ON SWALLOW EVAL IN AM AND NPO STATUS. PT UNABLE TO KEEP EYES OPEN LONGER THEN 30 SECONDS AT A TIME. REMAINS UNSAFE TO SWALLOW AT THIS TIME. BP SOFT. MAP GREATER THAN 65. OTHER VSS. PT HAS SMALL SCABS T/O BODY, THAT HE SCRATCHES OPEN AT TIMES. NO BM THIS SHIFT. CONDOM CATH IN PLACE. MINIMAL URINE OUTPUT. BED ALARM ON. CALL LIGHT IN REACH. WILL REPORT OFF TO ONCOMING RN.
[2022-12-31 05:30] LABS: Albumin, Blood 4.3 g/dL (3.4-5.0); Anion Gap 15 mmol/L (6-16); Blood Urea Nitrogen 94 mg/dL (8-24); Bun/Creatinine Ratio 13.8 (12.0-20.0); CO2, Blood 26 mmol/L (21-32); Calcium, Blood 9.6 mg/dL (8.5-10.1); Chloride, Blood 98 mmol/L (98-108); Creatinine, Blood 6.83 mg/dL (0.60-1.20); Glomerular Filtration Rate 8 (60-); Glucose, Blood 83 mg/dL (70-99); Magnesium, Blood 2.3 mg/dL (1.6-2.4); Phosphorus, Blood 6.9 mg/dL (2.5-4.9); Potassium, Blood 4.1 mmol/L (3.5-5.5); Sodium, Blood 139 mmol/L (136-145)
--- NOTE | 2022-12-31 08:11 | NUR ---
Received report from Noc RN. Patient is awake and calling outy for water. Went in room and performed oral care and sat him up and tried swallow eval and he mostly tolerated and mininmal cough, less with ice than water. Sopeech therapy in room now. Dialysis came by and stated they will take him after ST done. He is on RA and sats >90%. He has condom cath in place with tea colored urine. He has 20ga PowerGlide to JOIE and started Clinimix at 50 ml/hr. He has trialysis cath to right groin, dressing intact and WNL's. MAEW and works to help with positioning.
--- NOTE | 2022-12-31 11:56 | NUR ---
Patient back from dialysis and tolerated well. Multiple family members have been at bedside in dialysis and followed to room . He is sitting up and feeding self and helping as well. He continues to tolerate liquids with minimal coughing. He is very tired and wants to rest. Systolic in the 90's and MAP'S >65. Clinimix contionues at 50 ml/hr. He remains on RA and sats >90%.
[2023-01-01 03:18] VITALS: BP 121/78
[2023-01-01 05:59] LABS: Hematocrit 29.1 % (37.0-53.0)
[2023-01-01 06:20] LABS: Albumin, Blood 3.6 g/dL (3.4-5.0); Anion Gap 10 mmol/L (6-16); Blood Urea Nitrogen 77 mg/dL (8-24); Bun/Creatinine Ratio 13.1 (12.0-20.0); CO2, Blood 28 mmol/L (21-32); Calcium, Blood 9.3 mg/dL (8.5-10.1); Chloride, Blood 100 mmol/L (98-108); Creatinine, Blood 5.87 mg/dL (0.60-1.20); Glomerular Filtration Rate 9 (60-); Glucose, Blood 130 mg/dL (70-99); Magnesium, Blood 2.2 mg/dL (1.6-2.4); Phosphorus, Blood 5.4 mg/dL (2.5-4.9); Potassium, Blood 4.3 mmol/L (3.5-5.5); Sodium, Blood 138 mmol/L (136-145)
--- NOTE | 2023-01-01 06:27 | NUR ---
PATIENT BECAME SLIGHTLY MORE CONFUSED OVERNIGHT. NOW AOX1-2, BUT IS ABLE TO BE REORIENTED. SR/ST WITH STABLE BP. ROOM AIR. TOLERATING PILLS WITH APPLESAUCE. CONDOM CATH IN PLACE, PATIENT OLIGURIC. CLINIMIX INFUSING.
[2023-01-01 07:45] VITALS: BP 119/51
[2023-01-01 12:10] VITALS: BP 87/59
--- NOTE | 2023-01-01 18:01 | NUR ---
RN/ DAY SHIFT SUMMARY MORNING REPORT RECIEVED DURING BEDSIDE GREETING WITH THE PATIENT. MORNING ASSESSMENT AND MEDICATION PASS WAS COMPLETED WITH NO COMPLICATIONS. THE MORNING WAS MOSTLY UNEVENTFUL WITH MEDICATIONS BEING PASSED WITH APPLE SAUCE WITH NO CHOKING. THE PATIENT STILL HAS ISSUES WITH DRINKING WATER. THE PATIENT HAS A ISSUE WITH SCRATCHING HIMSELF RESULTING IN SEVERAL OPEN WOUNDS THAT BLEED. FAMILY IS AT BEDSIDE. THE PATIENT SEEMS TO NOT HAVE A VERY STRONG APPITITE. HE REFUSED HIS DINNER TRAY DUE TO THE QUALITY OF THE FOOD. WILL CONTINUE TO MONITOR.
[2023-01-01 20:22] VITALS: BP 81/63
[2023-01-02] VITALS: BP 92/73
[2023-01-02 04:23] VITALS: BP 83/66
[2023-01-02 06:14] LABS: BASOPHILS ABSOLUTE AUTO 0.03 K/mm3 (0.00-0.23); BASOPHILS PERCENT AUTO 0 % (0-2); EOSINOPHILS ABSOLUTE AUTO 0.25 K/mm3 (0.00-0.68); EOSINOPHILS PERCENT AUTO 3 % (0-6); Hematocrit 27.1 % (37.0-53.0); Hemoglobin 8.6 g/dL (13.5-17.5); IMMATURE GRAN ABSOLUTE AUTO 0.02 K/mm3 (0.00-0.10); IMMATURE GRAN PERCENT AUTO 0 % (0-1); LYMPHOCYTES ABSOLUTE AUTO 0.69 K/mm3 (0.84-5.20); LYMPHOCYTES PERCENT AUTO 7 % (21-46); MONOCYTES ABSOLUTE AUTO 1.56 K/mm3 (0.16-1.47); MONOCYTES PERCENT AUTO 16 % (4-13); Mean Corpuscular HGB 23.8 pg (26.0-34.0); Mean Corpuscular HGB Conc 31.7 g/dL (31.5-36.5); Mean Corpuscular Volume 75 fL (80-100); NEUTROPHILS ABSOLUTE AUTO 7.44 K/mm3 (1.96-9.15); NEUTROPHILS PERCENT AUTO 75 % (41-73); Platelet Count 87 K/mm3 (150-400); RDW Coefficient Variation 19.6 % (11.7-14.2); RDW Standard Deviation 51.8 fL (35.1-46.3); Red Blood Cell Count 3.62 M/mm3 (4.30-5.90); White Blood Cell Count 9.99 K/mm3 (4.00-11.30)
[2023-01-02 06:35] LABS: Albumin, Blood 3.4 g/dL (3.4-5.0); Bilirubin, Total 3.9 mg/dL (0.1-1.0); Bun/Creatinine Ratio 13.4 (12.0-20.0); Calcium, Blood 9.3 mg/dL (8.5-10.1); Creatinine, Blood 6.71 mg/dL (0.60-1.20); Globulin, Blood 3.3 g/dL (2.2-4.0); Magnesium, Blood 2.2 mg/dL (1.6-2.4); Phosphorus, Blood 5.2 mg/dL (2.5-4.9); Potassium, Blood 4.4 mmol/L (3.5-5.5); Total Protein, Blood 6.7 g/dL (6.4-8.2)
--- NOTE | 2023-01-02 06:45 | NUR ---
SUMMARY PATIENT SLEEPING OFF AND ON T/O NIGHT. ANGRY AT TIMES WHEN WOKEN UP FOR CARE. POWER GLIDE LEAKING AND DC'D CLINIMIX IV INFUSING VIA TRIALYSIS LINE VIA PIGGY LINE. PATIENT VOIDING SMALL AMT DARK MARIANA URINE COLLECTED WITH CONDOM CATH. HYPOTENSION CONTINUES BP MAP REMAINING >60.
[2023-01-02 07:26] VITALS: BP 93/70
--- NOTE | 2023-01-02 10:27 | NUR ---
CARE ASSUMPTION This RN assumed care at 0700. vital signs stable. patient alert and oriented x4. patient reports pain on bottom, mepilex in place and reddness. reposition q2h. see shift assessment for further detials. patient reports no shortness of breath or chest pain/pressure. patient family at bedside. call light within reach. plan of care is up to date.
[2023-01-02 11:13] VITALS: BP 74/60
--- NOTE | 2023-01-02 12:52 | NUR ---
Spiritual care visit conducted. Patient is lying in bed and alert, his dtr Katrin is bedside. Patient tells me his struggles and also about his improvement. He voices that he is still upset about feeling like he has to have dialysis but admits that he feels significantly better physically which helps him feel better emotionally. We talk about the strong family support and love he has received over the last few days and how that has helped improve his spirits as well. I normalize his experience, reinforce helpful ideas and practices and provide therapeutic listening. Patient responded well and showed signs of an elevated mood. I will continue to remain available to carol and paola.
--- NOTE | 2023-01-02 14:47 | NUR ---
UPDATE this rn provied therapeutic communication and active listening to the patients , skuhdev. after patient working with physical therapy patient was asking how patient and halfway. it was mentioned about quality vs quanity of life and possibly speaking with palliative care. patient , sukhdev, become upset at the comment, and mentioned wanting to speak with patient advocate to therapist. this rn went in and asked the patient why they would like. wanted to step outside to talk, but this rn wanted the patient to be included in the conversation. patient was asleep for the conversation this rn had with the patients . patient explained how the patient was on comfort care and was being sent home, patient stated "he was being sent home to ". patient explained how she came in to see patient that evening, the day before patient was supposed to come home, and asked the patient if he wanted to , and the patient stated he said no. and that perviously when he would be asked about wanting to go home or having dialysis he would say no, but that the patient was no educated that if he didn't have dialysis he could . this rn sat and listened with the patient and explained that neither of them had to talk with the palliative care nurse. went discussed patient past hospitalizations and what the patient has overcome. this rn provied therapeutic communication, encouragment, and active listening. the conversation went very well. patient advocate, jordin, in the room to visit with patient and patient .
[2023-01-02 16:40] VITALS: BP 86/56
--- NOTE | 2023-01-02 17:49 | NUR ---
shift summary patient neuro remains unchaged. soft bp throughout the shift. patient family at bedside. daughters and updated on care. daughters and upset that patient did not have permacath placed since they were told he would today. medical charge entry specialist informed them that md was no in on mondays. otherwise no changes. patient did not eat lunch or dinner but did drink ensure and milk. plan remains up to date
[2023-01-02 21:36] VITALS: BP 116/61
[2023-01-03] VITALS (16 sets, daily range): BP systolic 80–138; BP diastolic 53–104
[2023-01-03 05:28] LABS: Hematocrit 26.2 % (37.0-53.0); Hemoglobin 8.5 g/dL (13.5-17.5)
[2023-01-03 05:58] LABS: Albumin, Blood 3.3 g/dL (3.4-5.0); Anion Gap 13 mmol/L (6-16); Blood Urea Nitrogen 110 mg/dL (8-24); Bun/Creatinine Ratio 15.2 (12.0-20.0); CO2, Blood 27 mmol/L (21-32); Calcium, Blood 9.3 mg/dL (8.5-10.1); Chloride, Blood 92 mmol/L (98-108); Creatinine, Blood 7.26 mg/dL (0.60-1.20); Glomerular Filtration Rate 7 (60-); Glucose, Blood 120 mg/dL (70-99); Magnesium, Blood 2.4 mg/dL (1.6-2.4); Phosphorus, Blood 5.4 mg/dL (2.5-4.9); Potassium, Blood 4.7 mmol/L (3.5-5.5); Sodium, Blood 132 mmol/L (136-145)
--- NOTE | 2023-01-03 06:24 | NUR ---
END OF SHIFT SUMMARY PT A/O, MAKES NEEDS KNOWN, USES CALL LIGHT APPROPRIATELY. SR, BP STABLE. ON 2L NC WHILE ASLEEP, O2 SAT 98%. NPO AFTER MIDNIGHT. INCONTINENT VOID X2, URINAL X1. NO BM. SKIN UNCHANGED. PG LEFT UPPER ARM POSITIONAL WITH SLUGGISH FLUSH. CLINAMIX RUNNING AT 50ML/HR. TRIALYSIS CATHETER TO RIGHT FEM. NO FAMILY AT BEDSIDE.
--- NOTE | 2023-01-03 11:46 | NUR ---
ASSUMED CARE OF PT AT 0700 THIS AM. PT IS LETHARGIC THIS AM, DECLINES OT SESSION, STATES "I JUST WANT TO SLEEP." MEDICATIONS HELD UNTIL LATER IN THE AM. BLOOD PRESSURES REMAIN SOFT, MAP>65. PT AWOKEN BY THIS RN 0945 FOR MEDICATIONS/ASSESSMENT. PT IS ABLE TO SWALLOW MEDICATIONS WHOLE WITH APPLE SAUCE WITHOUT DIFFICULTY. PT FOLLOWING DIRECTIONS WELL, MUMBLED SPEECH. ABLE TO USE CALL LIGHT FOR NEEDS. PT OOB TO CHAIR WITH OT FOR APROX 20-30MIN, THIS RN ASSISTED PT BACK TO BED, GAIT BELT/FWW, 1P ASSIST, CALL LIGHT IN REACH. WILL CONTINUE TO MONITOR AND CARE FOR PT.
--- NOTE | 2023-01-03 18:34 | NUR ---
PER REPORT FROM NOC SHIFT RN, PT NPO FOR PERMACATH PLACEMENT TODAY. [place], SENIOR CHEMICAL PROCESS ENGINEER, SPOKE WITH [facility]ENTER NOCTURNIST THIS AM AND CONFIRMED PT WAS ON THE SCHEDULE FOR TODAY. THIS RN HAD NOT HEARD ANY FURTHER INFORMATION ABOUT THE PROCEDURE OR SCHEDULING BY LATE THIS AFTERNOON. [place]ON CONTACTED MANAGER TECHNICAL SERVICES STAFF, WHO WERE ABLE TO SPEAK WITH DR SMITH. THEY STATE PT IS NOT ON THEIR LIST FOR TODAY. DR SMITH STATES HE WILL CONSULT AND PERFORM THE PERMACATH PLACEMENT TOMORROW. THIS INFORMATION IS GIVEN TO PT'S AND DTR AT BEDSIDE. ALSO NOTED TODAY THAT PT HAS NOT HAD HD SINCE 12/31, DR WONG IS CONSULTING AND HE IS CONTACTED. HD RN TO COME IN TONIGHT AND PT WILL RECEIVE HD. PT C/O CONSTIPATION AND ITCHINESS TODAY, PRN MEDICATION ORDERS OBTAINED FROM DR MARISCAL AND DR MARISCAL UPDATED OF ABOVE STATED ISSUES TODAY. ALL QUESTIONS AND CONCERNS ADRESSED TO PT/FAM SATISFACTION, UPDATED ON PLAN OF CARE. PT IS ABLE TO USE CALL LIGHT FOR NEEDS, CALL LIGHT IN REACH, WILL CONTINUE TO MONITOR AND GIVE REPORT TO NOC SHIFT RN.
--- NOTE | 2023-01-03 19:14 | NUR ---
PT TRANSFERED TO DIALYSIS VIA [facility].
[2023-01-04] VITALS (11 sets, daily range): BP systolic 79–107; BP diastolic 44–65
[2023-01-04 04:02] LABS: Hematocrit 23.9 % (37.0-53.0); Hemoglobin 7.8 g/dL (13.5-17.5)
[2023-01-04 04:31] LABS: Albumin, Blood 3.7 g/dL (3.4-5.0); Anion Gap 13 mmol/L (6-16); Blood Urea Nitrogen 92 mg/dL (8-24); Bun/Creatinine Ratio 14.1 (12.0-20.0); CO2, Blood 26 mmol/L (21-32); Calcium, Blood 9.3 mg/dL (8.5-10.1); Chloride, Blood 96 mmol/L (98-108); Creatinine, Blood 6.53 mg/dL (0.60-1.20); Glomerular Filtration Rate 8 (60-); Glucose, Blood 125 mg/dL (70-99); Magnesium, Blood 2.3 mg/dL (1.6-2.4); Phosphorus, Blood 4.7 mg/dL (2.5-4.9); Potassium, Blood 4.5 mmol/L (3.5-5.5); Sodium, Blood 135 mmol/L (136-145)
--- NOTE | 2023-01-04 06:15 | NUR ---
SHIFT SUMMARY A/OX3, FORGETFUL AT TIMES. MUMBLED SPEECH. DIALYSIS COMPLETED AT BEGINNING OF SHIFT. TELE SR 70-90S, DENIES CHEST PAIN/PRESSURE. BP'S SOFT WITH MAP >65. SPO2 >92% ON RA. TRIALYSIS CATH TO Gabrielle EM, CLINIMIX INFUSING PER EMAR. NPO SINCE 0000, PLAN IS FOR PERMACATH PLACEMENT TODAY. 2P ASSIST TO BSC, NO BM THIS SHIFT. NO ACUTE CHANGES AT THIS TIME. BED IN LOWEST POSITION WITH CALL LIGHT IN REACH. WILL CONTINUE TO MONITOR AND REPORT TO ONCOMING RN.
--- NOTE | 2023-01-04 07:24 | NUR ---
ASSUMED CARE PATIENT LYING IN BED QUIETLY WITH EYES CLOSED. NO FAMILY OR VISITORS AT BEDSIDE. EASILY AWAKENS TO VOICE AND TURNS HEAD TOWARDS SOUND, BUT DOES NOT MAKE EYE CONTACT. CLINIMIX INF TO RT GROIN TRIALYSIS CATHETER. PATIENT DENIES PAIN AT THIS TIME. BELONGINGS ON BEDSIDE TABLE AND CALL LIGHT IN REACH. REPORT RECEIVED FROM SLIME TRENT
--- NOTE | 2023-01-04 08:36 | NUR ---
DIALYSIS PATIENT TO DIALYSIS VIA [facility]. CLINIMIX ON SB WHILE IN DIALYSIS.
--- NOTE | 2023-01-04 11:43 | NUR ---
Spiritual care visit conducted. Patient is lying in bed and alert. Spouse, Diana and dtr Amy are bedside. Diana immediately voices her concerns about his surgery for port placement that did not happen yesterday and that his temporary port failed today during an attempt to perform dialysis. Patient stated that he did not want another proceduare. Diana asked him if he wanted to and the patient stated, "I'm ready." Diana shook her head no and he asked, "Why do you ask the question if you don't want the answer?" She said, "Oh, you don't mean that." Diana asks that I contact the patient advocate and the PCU regional sales engineer about insuring that he has his port placed this day and to address the communication gaps regarding not even being placed on the list for port placement. I talked to regional sales engineer Nicole and left a message with Jerica Soto the Patient Advocate, after leaving the patient's room. I provide therapeutic listening, gentle vocational guidance counselor and a calming presence. Family appeared to have a reduction in stress.
--- NOTE | 2023-01-04 15:47 | NUR ---
WISHES REGARDING PLAN OF CARE WHILE ROUNDING ON PATIENT, THE PATIENT DISCUSSED WITH THIS NURSE HIS WISHES FOR HIS PLAN OF CARE. HE VERBALIZES THAT HE DOES NOT WISH TO HAVE THE PERMACATH PLACED AND DOES NOT WANT TO DO DIALYSIS. WHEN ASKED WHAT HE WANTS FOR HIMSELF HE STATES " I JUST WANT MY LIFE BACK". I ASKED THE PATIENT IF HE COULD NOT HAVE THE LIFE BACK THAT HE HAD PRIOR TO THIS HOSPITALIZATION THEN WHAT WOULD HE WANT AND HE VERBALIZES "I WANT TO ". I ASKED THE PATIENT WHY HE ISN'T TELLING HIS FAMILY THAT WHEN THEY ARE AT THE BEDSIDE AND HE STATES " I HAVE TOLD THEM AND TOLD THEM AND TOLD THEM". CALL MADE TO PALLIATIVE CARE TO UPDATE AND CHARGE NURSE.
--- NOTE | 2023-01-04 16:50 | NUR ---
ABD PN PATIENT C/O ABD PAIN AND URGE TO HAVE BM, BUT REFUSED BED [place]. EXPLAINED SAFETY REASON TO WHY BEDPAN NEEDS TO BE UTILIZED AND PATIENT CONTINUES TO REFUSE.
--- NOTE | 2023-01-04 17:11 | NUR ---
SHIFT SUMMARY PATIENT DID NOT TOLERATE DIALYSIS TODAY D/T PORT ACCESS CLOTTED AND HYPOTENSION. PATIENT IS STILL AWAITING PERMACATH PLACEMENT AT THIS TIME. PATIENTS AND DAUGHTER VISITED WITH PATIENT TODAY. MULTIPLE CONVERSATIONS REGARDING PLAN OF CARE DISCUSSED WITH PATIENT AND FAMILY-SEE PREVIOUS NOTES. STATUS CHANGED TO MEDICAL WITHOUT TELEMETRY. NO OTHER CHANGES THIS SHIFT.
--- NOTE | 2023-01-04 17:50 | NUR ---
COMFORT CARE SLIME BARRIOS ARRIVED FROM TO BRING PATIENT TO PSYCHOLOGICAL AIDE FOR PERMACATH PLACEMENT. UPON ENTERING ROOM WITH SOPHIE, PATIENT VERBALIZED THAT HE DID NOT WANT THE PROCEDURE STATING "I'M NOT DOING IT". FAMILY ARRIVED AT BEDSIDE AND REQUESTED A PRIVATE MEETING WITH THE PATIENT. AFTER ALLOWING PRIVATE DISCUSSION, I REVISITED PATIENT AND FAMILY AT BEDSIDE WITH SLIME BARRIOS AND CHARGE NURSE SLIME BUREDN. I ASKED THE PATIENT IF HE WANTS TO GO THROUGH WITH THE PERMACATH PROCEDURE AND HE STATED "NO". FAMILY BEGAN TALKING WITH THE PATIENT REGARDING WHAT THE PLAN OF CARE WOULD LOOK LIKE IF HE DID NOT GO THROUGH WITH IT INCLUDING GOING HOME ON HOSPICE "TO ". PATIENT BECAME AGITATED AND YELLED "WELL DO IT THEN IF THAT'S WHAT YOU WANT". AFTER EXTENSIVE DISCUSSION REGARDING PATIENT WISHES AND ADVOCATING FOR THE PATIENT, THE PATIENT WAS ASKED BY SLIME BURDEN IF HE WANTS THE CATHETER PLACEMENT AND TO CONTINUE WITH DIALYSIS TO WHICH HE ANSWERED "NO". FAMILY AGREEABLE WITH PATIENT WISHES. DR. MARISCAL UPDATED.
--- NOTE | 2023-01-05 06:18 | NUR ---
SHIFT SUMMARY AWAKES TO VERBAL/PAINFUL STIMULI, ORIENTED TO PERSON, PLACE, AND CURRENT SITUATION. COMFORT CARE MEASURES IN PLACE. Q2 REPOSITIONING. TRIALYSIS CATH TO R. GROIN. BED IN LOWEST POSITION WITH CALL LIGHT IN REACH. WILL CONTINUE TO MONITOR AND REPORT TO ONCOMING RN.
--- NOTE | 2023-01-05 08:24 | NUR ---
Comfort Care Visit Pt resting in bed and denies pain at this time. Pt appears lethargic and weak. Offered brief supportive visit. Pt reports no concerns at this time. Spoke with Primary RN Erlinda and discussed case. Palliative Care will remain available
--- NOTE | 2023-01-05 10:35 | NUR ---
UPDATE PT'S DAUGHTER AT BEDSIDE. PT HAD ONE EPISODE OF VOMITING THIS AM. MEDICATED, SEE EMAR. PT'S DAUGHTER SPEAKING WITH [employer] CONSULTANT AT THIS TIME.
--- NOTE | 2023-01-05 11:34 | NUR ---
DAUGHTER YVETTE GAUTAM
--- NOTE | 2023-01-05 13:13 | NUR ---
Case Conference Note Spoke mamie RN Fine Hairer Shay and discussed case. Spoke with Dr Null and discussed case. Pt would benefit from having ICD deactivated. Called and spoke with Pt's spouse Diana. Discussed deactivating Pt's ICD. Diana requests the ICD not be deactivated at this time. Relayed request to Dr Null. Palliative Care will remain available
--- NOTE | 2023-01-05 14:04 | NUR ---
Pt will no longer have IV access once temporary catheter is removed. Received v/o from Dr. Null to d/c IV medications and replace with po meds.
--- NOTE | 2023-01-05 17:13 | NUR ---
UPDATE PER , TRIALYSIS CATH IN NEED OF REMOVAL D/T INCREASED RISK OF INFECTION. ALL ORDERS CHANGED TO PO. TRIALYSIS PORT REMOVED WITH ASSITANCE OF KITCHENWHERE MAKER. PT MARCK WELL. SITE WNL, NO HEMATOMA OR BLEEDING. PT LYING FLAT AFTER REMOVAL. CARDIOGRAPHER AT BEDSIDE. FAMILY AT BEDSIDE.
--- NOTE | 2023-01-05 19:45 | NUR ---
SHIFT SUMMARY PT CONFUSED AT TIMES AND SLOW TO RESPOND. PT HAD ONE EPISODE OF VOMITING THIS SHIFT. MEDICATD PER EMAR. PT REPORTS NAUSEA T/O SHIFT, MEDICATED PER EMAR. PT REPORTS ITCHING THIS EVENING. ORDERS FOR AQUAPHOR. PT SLEEPING AT END OF SHIFT, REPORTS TO BE COMFORTABLE. TRIALYSIS CATH REMOVED PER ORDER. PT MARCK WELL. SITE WNL, NO HEMATOMA OR BLEEDING. PT ABLE TO ASSIST IN TURNS T/O SHIFT. DEPENDS IN PLACE. PLAN FOR DC TOMORROW ON HOSPICE. WAITING ON PLACEMENT. CALL LIGHT WITHIN REACH. BED ALARM IN PLACE. REPORT GIVEN TO NIGHTSHIFT RN.
--- NOTE | 2023-01-06 05:33 | NUR ---
SHIFT SUMMARY AWAKES TO VERBAL/PAINFUL STIMULI, ORIENTED TO PERSON, PLACE, AND CURRENT SITUATION. COMFORT CARE MEASURES IN PLACE. Q2 REPOSITIONING. DRESSING TO R. GROIN FROM PREVIOUS TRIALYSIS CATH, C/D/I. BED IN LOWEST POSITION WITH CALL LIGHT IN REACH. WILL CONTINUE TO MONITOR AND REPORT TO ONCOMING RN.
[2023-01-06 08:59] LABS: SARS-Cov-2 (COVID-19) PCR, MMC NEGATIVE (NEGATIVE)
--- NOTE | 2023-01-06 12:15 | NUR ---
Called and spoke with Pt's spouse Diana this AM. Discussed deactivation of ICD. Diana reports being in agreement. Placed order in [employer] for turning of ICD per V/O from Dr Null. Called and spoke with [employer] rep. Rep will be in between 1000 and 1100 to deactivate ICD. Pt resting in bed with his eyes closed. Pt appears comfortable with no S/S of distress at this time. Pt left undisturbed at this time. Spoke with Primary RN Gem and discussed case. Plan for Pt to D/C to [facility] between [id number] with hospice services. Palliative Care will remain available
--- NOTE | 2023-01-06 16:38 | NUR ---
Transport arrived to take patient to [facility], per charge accounts audit clerk when pt slide to iker, the patient stated having agnol breathing. Pt declared at 1342. Left messages for spouse to call back, Miguel Angel called and spoke with son and daughter, spouse called back with home. Family would like [facility]. Awaiting to be cleared through donor line.
--- NOTE | 2023-01-06 20:17 | NUR ---
ASSUMPTION OF CARE: PT IN ROOM. ROOM TEMP TURNED DOWN, ICE PACKS PLACED ON EYES. TRANSPLANT TECH IN ROOM.
--- NOTE | 2023-01-06 22:53 | NUR ---
UPDATE: KAROLINA WINTER, DONOR TECH, PICKED UP PT @[phone]. FACEHSEET WITH DONOR TECH. PT WILL BE TRANSPORTED TO HOME AFTER TISSUE DONATION.
== END 2023-01-06 22:48 | DRG 682 ==
LOC: ER 16:46 → PCU 16:47 → MEDS 16:47 → PCU 22:17 → MEDS 12-28 15:49 → PCU 12-29 14:12
PROVIDERS: Emergency Medicine; Family Medicine; Internal Medicine; Internal Medicine Cardiovascular Disease; Internal Medicine Nephrology; ADMIT Student in an Organized Health Care Education/Training Program
PROC: 5A1D70Z Performance of Urinary Filtration, Intermittent, Less than 6 Hours Per Day (ICD-10-PCS; principal; 2022-12-29)
PROC: 4A033R1 Measurement of Arterial Saturation, Peripheral, Percutaneous Approach (ICD-10-PCS; 2022-12-29)
PROC: 06HY33Z Insertion of Infusion Device into Lower Vein, Percutaneous Approach (ICD-10-PCS; 2022-12-29)
PROC: B54BZZA Ultrasonography of Right Lower Extremity Veins, Guidance (ICD-10-PCS; 2022-12-29)
DX: N17.0 Acute kidney failure with tubular necrosis (principal); I50.23 Acute on chronic systolic (congestive) heart failure; G93.49 Other encephalopathy; E87.1 Hypo-osmolality and hyponatremia; I48.19 Other persistent atrial fibrillation; I47.1 Supraventricular tachycardia; I13.2 Hypertensive heart and chronic kidney disease with heart failure and with stage 5 chronic kidney disease, or end stage renal disease; Z66 Do not resuscitate; Z51.5 Encounter for palliative care; E11.22 Type 2 diabetes mellitus with diabetic chronic kidney disease; E86.0 Dehydration; R56.9 Unspecified convulsions; E03.9 Hypothyroidism, unspecified; I25.10 Atherosclerotic heart disease of native coronary artery without angina pectoris; Z20.822 Contact with and (suspected) exposure to COVID-19; D63.1 Anemia in chronic kidney disease; N25.81 Secondary hyperparathyroidism of renal origin; I25.5 Ischemic cardiomyopathy; E78.5 Hyperlipidemia, unspecified; I45.10 Unspecified right bundle-branch block; I95.9 Hypotension, unspecified; E87.5 Hyperkalemia; E83.39 Other disorders of phosphorus metabolism; E88.09 Other disorders of plasma-protein metabolism, not elsewhere classified; N18.4 Chronic kidney disease, stage 4 (severe); I48.0 Paroxysmal atrial fibrillation; E66.01 Morbid (severe) obesity due to excess calories; Z79.899 Other long term (current) drug therapy; Z79.82 Long term (current) use of aspirin; Z79.02 Long term (current) use of antithrombotics/antiplatelets; Z87.19 Personal history of other diseases of the digestive system; Z95.1 Presence of aortocoronary bypass graft; Z95.5 Presence of coronary angioplasty implant and graft; Z86.73 Personal history of transient ischemic attack (TIA), and cerebral infarction without residual deficits; Z79.2 Long term (current) use of antibiotics; Z79.51 Long term (current) use of inhaled steroids; I25.2 Old myocardial infarction; Z90.89 Acquired absence of other organs; Z68.31 Body mass index [BMI] 31.0-31.9, adult; Z95.810 Presence of automatic (implantable) cardiac defibrillator
CPT/HCPCS: 36415; 36600; 70450; 71045; 80053; 80069; 80074; 82140; 82248; 82803; 82947; 83605; 83735; 84100; 84146; 84439; 84443; 84481; 84484; 84550; 85014; 85018; 85025; 85049; 85520; 85610; 85730; 86850; 86900; 86901; 92526; 92610; 93005; 93010; 97162; 97166; 97530; 99285-25; A9270; C8929; J1170; J1630; J1644; J1953; J2060; J2270; J2405; J7030; J7050; J7120; P9047; Q9957; U0002